=== PATIENT | female | born 1935 | race Caucasian/White ===

== ENCOUNTER → 2016-06-20 | Outpatient (CLI) | payer BC ==
[~2016-06-20] MED LIST: ALL180 PO; ASPI325T45 PO; HYDR25TA4 PO; PRED-301 PO; PRT/20 PO; SYN50 PO; VITA400C3 PO; XNX25 PO
[2016-06-20 12:41] LABS: HEMATOCRIT 42.6 % (37-47); MEAN CELL VOLUME 92.8 fL (80-100); MEAN CORPUSCULAR HGB CONC 34.5 g/dl (32-36); MEAN PLATELET VOLUME 10.3 fL (7.4-10.4); PLATELET COUNT 213 K/uL (130-400); RED BLOOD COUNT 4.59 M/uL (4.2-5.4); WHITE BLOOD COUNT 5.47 K/uL (4.8-10.8)
[2016-06-20 13:39] LABS: ALT/SGPT 29 U/L (12-78); AST/SGOT 21 U/L (15-37); BLOOD UREA NITROGEN 17 mg/dl (7-18); BUN/CREATININE RATIO 22.7 (10-20); CALCIUM 8.7 mg/dl (8.5-10.1); CARBON DIOXIDE 33 mmol/L (21-32); CHLORIDE 107 mmol/L (98-107); CREATININE 0.77 mg/dl (0.60-1.20); GLUCOSE 85 mg/dl (70-99); SODIUM 144 mmol/L (136-145)
[2016-06-20 13:50] LABS: ALKALINE PHOSPHATASE 88 U/L (45-117); CHOLESTEROL 216 mg/dl (0-200); CHOLESTEROL/HDL RATIO 2.4; HDL CHOLESTEROL 90 mg/dl; LDL CHOLESTEROL CALCULATED 102 mg/dl; TRIGLYCERIDES 122 mg/dl (0-150); VERY LOW DENSITY LIPOPROT CALC 24 mg/dl
== END | disposition home or self-care (01) ==
LOC: C.LABPVFM 07:50
PROVIDERS: ATTEND Internal Medicine
DX: E03.9 Hypothyroidism, unspecified (principal); E78.5 Hyperlipidemia, unspecified

== ENCOUNTER → 2016-12-22 | Outpatient (CLI) | payer BC ==
[2016-12-22 12:29] LABS: MEAN CELL VOLUME 93.9 fL (80-100); MEAN CORPUSCULAR HEMOGLOBIN 31.2 pg (25-34); MEAN CORPUSCULAR HGB CONC 33.3 g/dl (32-36); MEAN PLATELET VOLUME 10.5 fL (7.4-10.4); PLATELET COUNT 237 K/uL (130-400); RED BLOOD COUNT 4.58 M/uL (4.2-5.4)
[2016-12-22 13:23] LABS: ALT/SGPT 53 U/L (12-78); AST/SGOT 28 U/L (15-37); BLOOD UREA NITROGEN 14 mg/dl (7-18); CALCIUM 8.6 mg/dl (8.5-10.1); CARBON DIOXIDE 27 mmol/L (21-32); CHLORIDE 108 mmol/L (98-107); CHOLESTEROL 213 mg/dl (0-200); GLUCOSE 86 mg/dl (70-99); POTASSIUM 4.3 mmol/L (3.5-5.1); SODIUM 143 mmol/L (136-145)
[2016-12-22 13:33] LABS: ALB/GLOB RATIO 0.9 (0.9-2); ALKALINE PHOSPHATASE 128 U/L (45-117); CHOLESTEROL/HDL RATIO 2.6; HDL CHOLESTEROL 81 mg/dl; LDL CHOLESTEROL CALCULATED 103 mg/dl; TRIGLYCERIDES 145 mg/dl (0-150); VERY LOW DENSITY LIPOPROT CALC 29 mg/dl
== END | disposition home or self-care (01) ==
LOC: C.LABPVFM 07:59
PROVIDERS: ATTEND Internal Medicine
DX: M35.3 Polymyalgia rheumatica (principal); E03.9 Hypothyroidism, unspecified; E78.5 Hyperlipidemia, unspecified

== ENCOUNTER → 2017-06-26 | Outpatient (CLI) | payer BC ==
[~2017-06-26] MED LIST changes: +ASPECOTC PO; -ASPI325T45 PO
[2017-06-26 12:38] LABS: BASO % 0.9 %; BASO ABS # 0.04 K/uL (0-0.2); EOS % 5.9 %; EOS ABS # 0.26 K/uL (0-0.5); HEMATOCRIT 41.6 % (37-47); HEMOGLOBIN 13.9 g/dL (12.0-16.0); IG# 0.01 K/uL (0.00-0.02); LYMPH % 34.9 %; LYMPH ABS # 1.54 K/uL (1.2-3.4); MEAN CELL VOLUME 93.5 fL (80-100); MEAN CORPUSCULAR HEMOGLOBIN 31.2 pg (25-34); MEAN CORPUSCULAR HGB CONC 33.4 g/dl (32-36); MEAN PLATELET VOLUME 10.3 fL (7.4-10.4); MONO % 8.6 %; MONO ABS # 0.38 K/uL (0.11-0.59); NEUT % 49.5 %; NEUT ABS # 2.18 K/uL (1.4-6.5); PLATELET COUNT 188 K/uL (130-400); RED CELL DISTRIBUTION WIDTH CV 13.7 % (11.5-14.5); WHITE BLOOD COUNT 4.41 K/uL (4.8-10.8)
[2017-06-26 13:23] LABS: ALBUMIN 3.7 gm/dl (3.4-5.0); ALT/SGPT 36 U/L (12-78); BLOOD UREA NITROGEN 16 mg/dl (7-18); CALCIUM 8.6 mg/dl (8.5-10.1); CARBON DIOXIDE 27 mmol/L (21-32); CHOLESTEROL 213 mg/dl (0-200); CREATININE 0.74 mg/dl (0.60-1.20); GLUCOSE 82 mg/dl (70-99); POTASSIUM 4.2 mmol/L (3.5-5.1); SODIUM 142 mmol/L (136-145)
[2017-06-26 13:33] LABS: ALKALINE PHOSPHATASE 90 U/L (45-117); AST/SGOT 30 U/L (15-37); LDL CHOLESTEROL CALCULATED 112 mg/dl; TOTAL PROTEIN 6.9 gm/dl (6.4-8.2)
== END | disposition home or self-care (01) ==
LOC: C.LABPVFM 07:52
PROVIDERS: ATTEND Internal Medicine
DX: E78.5 Hyperlipidemia, unspecified (principal); K57.32 Diverticulitis of large intestine without perforation or abscess without bleeding; E03.9 Hypothyroidism, unspecified

== ENCOUNTER → 2017-07-01 | Outpatient (CLI) | payer BC | END | disposition home or self-care (01) | LOC: C.LABBFT 13:40 | PROVIDERS: ATTEND Internal Medicine | DX: R35.0 Frequency of micturition (principal) ==

== ENCOUNTER 2018-11-04 06:08 | Inpatient (IN) ==
--- NOTE | 2018-10-15 11:54 | PAT Medication Instructions ---
Medication Instructions Date of Service October 15, 2018 Home Medications Medication Instructions Recorded ranitidine 150 mg tablet 150 mg PO DAILY #90 tab 09/30/18 aspirin [Aspirin Childrens] 81 mg PO QAM fexofenadine [Jessika Allergy] 180 mg PO QAM levothyroxine 50 mcg PO QAM vitamin E 400 unit PO QAM ranitidine 150 mg tablet 150 mg PO DAILY STOP taking 2 weeks before surgery (or as soon as possible if surgery is within 2 weeks) vitamin E 400 unit PO QAM DO NOT take the morning of surgery fexofenadine [Jessika Allergy] 180 mg PO QAM ranitidine 150 mg tablet 150 mg PO DAILY Take morning of surgery With a small sip of water, OTHERWISE NOTHING TO EAT OR DRINK AFTER MIDNIGHT: aspirin [Aspirin Childrens] 81 mg PO QAM levothyroxine 50 mcg PO QAM Other Notes If you have any questions please call us at [phone] or [phone] or [phone] or [phone]
--- NOTE | 2018-10-18 14:12 | Anesthesiology Consultation ---
Date of Service October 18, 2018 Assessment & Plan (1) Encounter for pre-operative examination: Chart Review Chart Review: Acceptable Risk for Surgery and Patient seen in Pre Admission Testing Teaching & Discussion Pre-Anesthesia Teaching/Discussion Notes: Instructed NPO after midnight before surgery,except medications with 15 cc of water. Medication instructions provided according to the PAT guidelines. History Surgery Operation Date: 11/04/18 07:30 Proposed Procedures p Left Total Hip Replacement - David Johns MD Height/Weight Height: 5 ft 1 in Weight: 76.6 kg Allergies Allergy/AdvReac Type Severity Reaction Status Date / Time codeine Allergy Intermediate Rash Verified 10/18/18 14:12 shellfish derived Allergy Unknown pruritis Verified 10/18/18 14:12 corn AdvReac Unknown hx Verified 10/18/18 14:12 diverticulitis; advised to avoid nut - unspecified AdvReac Unknown hx Verified 10/18/18 14:12 diverticulitis; advised to avoid morphine AdvReac Vomiting Verified 10/18/18 14:12 tramadol AdvReac Vomiting Verified 10/18/18 14:12 Medications Home Medications Medication Instructions Recorded Confirmed Last Taken aspirin [Aspirin Childrens] 81 mg PO QAM 12/16/17 10/15/18 01/05/18 08:30 fexofenadine [Jessika Allergy] 180 mg PO QAM 12/16/17 10/15/18 01/05/18 08:30 levothyroxine 50 mcg PO QAM 12/16/17 10/15/18 01/05/18 08:30 vitamin E 400 unit PO QAM 12/16/17 10/15/18 01/05/18 08:30 ranitidine 150 mg tablet 150 mg PO DAILY #90 tab 09/30/18 10/15/18 Unknown Past Medical History Medical History Cancer skin cancer s/p excision Diverticular disease GERD (gastroesophageal reflux disease) controlled Hyperlipidemia Hypothyroidism Irritable bowel disease Obesity Osteoarthritis PMR (polymyalgia rheumatica) Prolapsed bladder Urinary leakage Exercise / Class Metabolic Activity III < 4 Walking/Shop/Light housework Past Family History Family History Mother Family history of diabetes mellitus Brother Family history of diabetes mellitus Grandmother Family history of diabetes mellitus Family/Other Family history of diabetes mellitus Past Surgical History Surgical History History of cataract surgery right/left; right cataract extraction: 01/06/18: MAC sedation at [facility] History of cholecystectomy History of colonoscopy History of dilatation and curettage MULTIPLE History of discectomy LUMBAR History of tonsillectomy History of tooth extraction History of total abdominal hysterectomy and bilateral salpingo-oophorectomy History of total hip arthroplasty RIGHT Past Anesthesia History No Hx of Anesthesia Complications (except PONV) and No Family Hx of Anesthesia Complications History of PONV History of PONV and Hx of Motion Sickness (while taking bus) Social History Smoking Status: Never smoker Do You Dip or Chew Tobacco: No Hx Alcohol Use: Yes Alcohol type: wine alcohol intake frequency: holidays/special occasions only Hx Substance Use: No substance use type: does not use Review of Systems Reflux controlled. Patient denies chest pain, shortness of breath, cough, wheezing, palpitations. Physical Exam Vital Signs VITALS BP 125/75 P 56 TEMP 98.0 SP02 93%RA RESP 20 PHYSICAL Mildly decreased cervical extension Full TMJ range of motion. TMD 3 finger breaths Mallampati Score 2 Dentition: upper full dentures, lower partial Lungs: clear throughout to auscultation Cardiac: regular rate and rhythm, no murmurs noted Spine: normal Carotid arteries: negative bruit Extremities: R>L LE non-pitting edema Testing Laboratory Results 10/18/18 14:31 10/18/18 14:31 PT 10.3 Seconds (9.0-12.0) 10/18/18 14:31 INR 1.0 (0.9-1.1) 10/18/18 14:31 APTT 27.6 Seconds (21.0-31.0) 10/18/18 14:31 Blood Type O Positive 10/18/18 14:31 Antibody Screen NEGATIVE 10/18/18 14:31 Electrocardiogram Date: 10/18/18 Findings: + NSR @ (60) Chest X-Ray Date: 10/18/18 The heart is borderline enlarged. A few bibasilar linear densities favor scar ring or atelectasis. Otherwise, no acute process within the chest. Stress Test Date: 02/27/13 Type: exercise Normal stress ECHO at 7.6 METs, 100% MPHR. No exercise-induced chest pain. No EKG changes. Baseline ECHO with EF 60%. Mild MR.
--- NOTE | 2018-10-18 14:50 | XRay Report ---
XR chest Pre-admission PA/Lat HISTORY: Preop. COMPARISON: Chest 02/27/2013. FINDINGS: A few small bibasilar linear densities consistent with subsegmental atelectasis. The lungs are otherwise clear. No pleural effusions. No pneumothorax. The heart is borderline enlarged. IMPRESSION: A few bibasilar linear densities favor scarring or atelectasis. Otherwise, no acute process within th e chest. Electronically signed by: Nikolai Alex M.D. 10/18/2018 2:49 PM
[2018-10-18 15:27] LABS: Basophils # (auto) 0.04 K/uL (0-0.2); Basophils % (auto) 0.9 %; Eosinophils # (auto) 0.17 K/uL (0-0.5); Eosinophils % (auto) 3.7 %; Hematocrit (blood only) 39.9 % (37-47); Hemoglobin 13.6 g/dL (12.0-16.0); Immature Granulocytes # (auto) 0.01 K/uL (0.00-0.02); Immature Granulocytes % (auto) 0.2 %; Lymphocytes # (auto) 1.39 K/uL (1.2-3.4); Mean Corpuscular Hemoglobin 30.9 pg (25-34); Mean Corpuscular Hgb Conc 34.1 g/dL (32-36); Mean Corpuscular Volume 90.7 fL (80-100); Mean Platelet Volume 10.4 fL (7.4-10.4); Monocytes # (auto) 0.34 K/uL (0.11-0.59); Monocytes % (auto) 7.3 %; Neutrophils # (auto) 2.69 K/uL (1.4-6.5); Neutrophils % (auto) 57.9 %; Platelet Count 189 K/uL (130-400); RDW Coefficient of Variation 13.2 % (11.5-14.5); RDW Standard Deviation 43.7 fL (36.4-46.3); White Blood Count 4.64 K/uL (4.8-10.8)
[2018-10-18 15:38] LABS: Partial Thromboplastin Time 27.6 Seconds (21.0-31.0); Prothrombin Time 10.3 Seconds (9.0-12.0)
[2018-10-18 15:39] LABS: BUN Creatinine Ratio 19.7 (10-20); C Reactive Protein 1.14 mg/dl (0-0.29); Calcium 8.5 mg/dl (8.5-10.1); Creatinine Clr Calc Pharmacy 44.4 ml/min; Est GFR (African American) 68.5; Est GFR (Non-African American) 59.1
--- NOTE | 2018-10-31 18:42 | History and Physical Report ---
DATE OF ADMISSION: 11/04/2018 CHIEF COMPLAINT: Left hip pain. HISTORY OF PRESENT ILLNESS: This 82-year-old female from [place] who is referred by my partner Dr. Valadez for surgical treatment of her left hip. She has a fairly long history of left hip pain and discomfort that has gotten significantly worse over the past year. She describes groin pain, thigh pain and some buttock pain. It radiates down to her knee. She does have a history of intermittent back problems as well but the groin and thigh pain seems to be worse. Her walking tolerance is limited. She is a and having difficulty living by herself. The more she walks, the more it hurts and she limps more as the day goes on. She has nighttime pain. She would like to have her left hip fixed. Of note, the patient had a right hip replacement by Dr. Montague in the past and has done pretty well from this. PAST MEDICAL HISTORY: 1. Gastroesophageal reflux disease. 2. Mild obesity, BMI 32. PAST SURGICAL HISTORY: Include: 1. Hysterectomy. 2. Back operations. 3. Cholecystectomy. 4. Right hip replacement done by Dr. Montague. ALLERGIES: CODEINE AND TRAMADOL, WHICH CAUSES NAUSEA. Does not do well with narcotics, these are not true allergies. CURRENT MEDICINES: Include: 1. Jessika 180 mg. 2. Unspecified med - 150 mg a day. 3. Levothyroxine 50 mcg a day. 4. Aspirin 81 mg a day. 5. Vitamin D 400 international units a day. SOCIAL HISTORY: An 82-year-old female. She is a . Does not smoke. FAMILY HISTORY: Significant for heart disease and diabetes. REVIEW OF HISTORY: Negative for diabetes, neurologic problem, vascular problem, bleeding disorders. Denies any chest pain or shortness of breath. No history of DVT or PE. PHYSICAL EXAMINATION: GENERAL: Reveals a pleasant elderly female. Looks to be in pretty good health. HEENT: Benign. NECK: Supple, no lymphadenopathy. LUNGS: Clear to auscultation. HEART: Regular rate and rhythm. ABDOMEN: Soft, nontender, nondistended. EXTREMITIES: Grossly neurovascularly intact except as follows: Examination of the left hip reveals the patient walks with slight bit of a limp. Leg lengths reveal the left side just to be a little bit shorter than the right and a 0.5 cm maybe at best. She does have pain and stiffness with any type of hip motion, particularly internal rotation. I can internally rotate to neutral, external rotation to 20 degrees. Negative straight leg raise. She is neurologically intact. X-RAYS: Left hip were reviewed. Shows moderately advanced left hip arthritis. She has got near complete loss of her superior joint space. She has some cystic changes in the femoral head and acetabulum. A lot of osteophyte formation. She does have a right hip replacement, looks to be in good position and well ingrown. ASSESSMENT: An 82-year-old female who had status post right hip replacement in the past with moderately advanced left hip arthritis. Fairly affecting her quality of life. She has failed conservative treatment and would like to have her left hip fixed. PLAN: We will take her to the operating room and do a left total hip replacement. The risks and benefits of this procedure were explained to the patient including but not limited to DVT, PE, , infection, neurological injury, vascular injury, bleeding problem, pain management, limb range of motion, stiffness, fracture, leg length inequality, nerve palsy, dislocation, need for blood transfusion, etc. The patient understands and desires to proceed. Informed consent was obtained. She does live by herself and she will likely need to go to rehab postoperatively. She is aware of this. I did talk to her about her back issues and this is not going to fix her back pain. She is fully aware of that as well. FORD
[~2018-11-04 06:08] MED LIST changes: +ACETAMINOPHEN 500 MG TAB PO SCH; -ALL180 PO; -ASPECOTC PO; +CEFAZOLIN 2000MG 2,000 MG/15 ML SYR IV SCH; +FAMOTIDINE 20 MG TAB PO SCH; +GABAPENTIN 300 MG CAP PO SCH; -HYDR25TA4 PO; +LR 500ML BOLUS, THEN 15ML/HR IV SCH; +LR 60ML/HR IV SCH; +METOCLOPRAMIDE HCL 10 MG TABLET PO SCH; -PRED-301 PO; -PRT/20 PO; -SYN50 PO; +TRANEXAMIC ACID 1,000 MG **IV Pre-op IV SCH; -VITA400C3 PO; -XNX25 PO
[2018-11-04] MEDS ORDERED: BUPIVACAINE 0.5 % 5 MG/1 ML PF 10ML VIAL ONE (06:27)
--- NOTE | 2018-11-04 06:50 | History & Physical Bridge Note ---
Date of Service November 04, 2018 History & Physical Bridge Note I have examined the patient, reviewed the History & Physical and in the interval since the performance of the History & Physical I have noted the following changes of clinical significance: no changes noted
[2018-11-04] MEDS ORDERED: MIDAZOLAM HCL 1 MG/ML 2ML VIAL ONE ×2 (08:01)
[2018-11-04] MEDS ORDERED: MoRPHine SULFATE PF 1 MG/ML 10 ML AMP/VIAL ONE (08:01)
[2018-11-04] MEDS ORDERED: SCOPOLAMINE 1.5 MG TDSY ONE (08:11)
[2018-11-04] MEDS ORDERED: SCOPOLAMINE 1.5 MG TDSY TD ONE (08:14)
[2018-11-04] MEDS ORDERED: BACITRACIN INJ 50,000 UNIT VIAL ONE (08:25)
[2018-11-04] MEDS ORDERED: BUPIVACAINE/EPINEPHRINE 0.5% MPF 1:200,000 30 ML VIAL ONE (08:25)
[2018-11-04] MEDS ORDERED: NALOXONE HCL 0.08 MG in SYRINGE 1.8 ML IV PRN (08:33)
[2018-11-04] MEDS ORDERED: MoRPHine SULFATE PF 1 MG/ML 10 ML AMP/VIAL INT SPINAL ONE (08:33)
[2018-11-04] MEDS ORDERED: DiphenhydrAMINE HCL 50 MG/ML VIAL IV PRN (08:33)
[2018-11-04] MEDS ORDERED: PROMETHAZINE HCL 6.25 MG in SODIUM CHLORIDE 0.9% 50 ML IV PRN (08:33)
[2018-11-04] MEDS ORDERED: NALOXONE HCL 1 MG in SODIUM CHLORIDE 0.9% 1000ML 1,000 ML IV PRN (08:33)
[2018-11-04] MEDS ORDERED: ONDANSETRON INJ 2 MG/ML 2 ML VIAL IV PRN ×2 (08:33→11:57)
[2018-11-04] MEDS ORDERED: LACTATED RINGER'S 500 ML IV PRN (08:33)
[2018-11-04] MEDS ORDERED: NALBUPHINE HCL INJ 10 MG/ML AMP IV PRN (08:33)
[2018-11-04] MEDS ORDERED: NALOXONE HCL 0.4 MG/1 ML VIAL/CARP IV PRN ×2 (08:33→11:57)
[2018-11-04] MEDS ORDERED: KETOROLAC 30 MG/ML VIAL IV PRN (08:33)
[2018-11-04] MEDS ORDERED: ePHEDrine sulfate 50 MG/ML AMP IV PRN (08:33)
[2018-11-04] MEDS ORDERED: SODIUM CHLORIDE 0.9% 1000ML 1,000 ML IV SCH (08:45)
[2018-11-04] MEDS ORDERED: NO NARCOTICS OR SEDATIVES SCH (08:45)
[2018-11-04] MEDS ORDERED: DC INTRASPINAL MORPHINE SCH (08:45)
[2018-11-04] MEDS ORDERED: LIDOCAINE HCL 2% 2 ML VIAL/AMP(20MG/ML) INFIL ONE (09:29)
[2018-11-04] MEDS ORDERED: PROPOFOL IV EMULSION 10 MG/ML 20 ML VIAL IV ONE (09:29)
[2018-11-04] MEDS ORDERED: ePHEDrine sulfate 50 MG/ML SYR ONE (09:29)
[2018-11-04] MEDS ORDERED: ONDANSETRON INJ 2 MG/ML 2 ML VIAL ONE (09:29)
--- NOTE | 2018-11-04 10:12 | Post Operative Brief Note ---
PG Immediate Post Op with CF Date of Surgery November 04, 2018 Pre & Post Diagnosis Operation Date: 11/04/18 08:50 Pre-Op Diagnosis: Left Hip Degenerative Joint Disease Post-Op Diagnosis: Left Hip Degenerative Joint Disease Procedure Operation Date: 11/04/18 08:50 Actual Procedures p Left Total Hip Replacement--Uncemented(Left) - David Johns MD Surgeon David Johns MD [employer] Technician [place], PAC Estimated Blood Loss 400 Findings Consistent with Post-Op Diagnosis Fluids 1500 cc Specimens Specimen Description: PERMANENT SPECIMEN: A. left femoral head Drains Rosado Catheter Anesthesia Type Spinal MAC Complications none Disposition Disposition: Recovery Room
--- NOTE | 2018-11-04 10:45 | XRay Report ---
XR hip 1V LT w pelvis CLINICAL HISTORY: Postoperative evaluation. COMPARISON: Pelvis and left hip radiographs October 13, 2018. FINDINGS: Alignment of the total left hip arthroplasty is anatomic. There is no periprosthetic fract ure or unexpected radiopaque foreign body. There are acetabular screws and skin lacy. Right hip ar throplasty is noted. IMPRESSION: Expected findings following total left hip arthroplasty. Electronically signed by: Sergei Sanz M.D. 11/04/2018 10:44 AM
--- NOTE | 2018-11-04 11:15 | Anesthesiology Progress Note ---
Date of Service November 04, 2018 Anesthesia Post Procedure Vital Signs Vital Signs: Temp Pulse Pulse Resp BP Pulse Ox 11/04/18 10:50 78 15 125/55 L 100 11/04/18 10:40 67 11 L 130/57 L 100 11/04/18 10:30 73 14 126/57 L 95 11/04/18 10:20 77 19 106/72 95 11/04/18 10:14 36.2 C L 70 16 120/52 L 97 11/04/18 06:48 36.6 C 62 20 170/88 H 93 Transfer of Care Handoff Completed per policy Notes Mental Status: alert / awake / arousable Patient Amnestic to Procedure: Yes Nausea / Vomiting: adequately controlled Pain: adequately controlled Airway Patency, RR, SpO2: stable & adequate BP & HR: stable & adequate Hydration State: stable & adequate Neuraxial Anesthesia: was administered and sensory block is resolving Anesthetic Complications: no major complications apparent
[2018-11-04] MEDS ORDERED: HYDROmorphone INJ 0.5 MG/0.5 ML SYR IV PRN (11:57)
[2018-11-04] MEDS ORDERED: ALUMINUM/MAGNESIUM SUSP 30 ML UDC PO PRN (11:57)
[2018-11-04] MEDS ORDERED: METOCLOPRAMIDE HCL INJ 5 MG/ML 2 ML VIAL IV PRN (11:57)
[2018-11-04] MEDS ORDERED: TRAMADOL HCL 50 MG TABLET PO PRN (11:57)
[2018-11-04] MEDS ORDERED: BISACODYL 10 MG SUPP PR PRN (11:57)
[2018-11-04] MEDS ORDERED: MAGNESIUM HYDROXIDE SUSP 30 ML UDC PO PRN (11:57)
[2018-11-04] MEDS ORDERED: KETOROLAC TROMETHAMINE 15 MG/ML VIAL IV SCH (12:30)
[2018-11-04] MEDS: SODIUM CHLORIDE 0.9% 1000ML 1,000 ML IV SCH ×2 (13:13→23:14)
[2018-11-04] MEDS: ACETAMINOPHEN 500 MG TAB PO SCH ×2 (14:03→21:01)
[2018-11-04] MEDS: CHECK SCOPOLAMINE PATCH PLACEMENT SCH ×2 (16:08→23:41)
[2018-11-04] MEDS: CEFAZOLIN 1000MG 1,000 MG/7.5 ML SYR IV SCH ×2 (16:08→23:41)
[2018-11-04] MEDS ORDERED: TRANEXAMIC ACID 1,000 MG in 0.9 % SODIUM CHLORIDE 100 ML IV SCH (16:30)
[2018-11-04] MEDS: ASCORBIC ACID 500 MG TAB PO SCH (18:01)
[2018-11-04] MEDS: FERROUS GLUCONATE 324 MG TAB PO SCH (18:01)
--- NOTE | 2018-11-04 18:19 | Progress Note ---
DATE: 11/04/2018 SUBJECTIVE: An 82-year-old female postop from a left hip replacement. She is doing well. She has had a couple episodes of emesis. Not really feeling sick, but just spontaneously throws up intermittently. No chest pain or shortness of breath. Not feeling dizzy or lightheaded. OBJECTIVE: VITAL SIGNS: Temperature 36.7. Vital signs stable. GENERAL: Reveals a pleasant elderly female. She is lying in bed and I had to wake up to visit with her this evening. LUNGS: Clear to auscultation. HEART: Regular rate and rhythm. ABDOMEN: Soft, nontender, nondistended. EXTREMITIES: Grossly neurovascularly intact except as follows: Examination of the left lower extremity reveals leg lengths to be equal. Her dressing is clean, dry and intact. Thigh is soft and supple. Hip is located. She can dorsiflex and plantarflex her foot appropriately. X-RAYS: X-rays of the left hip from recovery room reviewed and shows left uncemented total hip arthroplasty. Components looked to be in good position. No signs of problems. ASSESSMENT: An 82-year-old female postop from a left hip replacement, doing well. Her pain is controlled. Hip is located. She is neurologically intact. She has had some emesis, but not really nausea which should clear just with time. PLAN: 1. DVT prophylaxis including thigh-high TEDs, SCDs, and aspirin twice a day. 2. PT/OT. Weight bear as tolerated. Left total hip protocol. 3. Pain control, doing well with current pain regimen. She does not do well with narcotics and will try and limit narcotics as much as possible. 4. IV antibiotics x24 hours. 5. Disposition: Discharge plans are equivocal at this point. She would really like to go home. She lives by herself. She did the last time but I am not sure she is going to be capable of managing her situation at home. We will see how therapy goes tomorrow.
[2018-11-04] MEDS: SENNA 8.6 MG TAB PO SCH (20:49)
[2018-11-04] MEDS: ASPIRIN 81 MG ECTAB PO SCH (20:49)
[2018-11-04] MEDS: DOCUSATE SODIUM 100 MG CAP PO SCH (20:49)
--- NOTE | 2018-11-04 22:38 | Operative Report ---
DATE OF OPERATION: 11/04/2018 SURGEON: David Johns M.D. QUALITY CONTROL HEAD: JALEN Clark PREOPERATIVE DIAGNOSIS: Left hip degenerative joint disease. POSTOPERATIVE DIAGNOSES: 1. Left hip degenerative joint disease. 2. Left hip chronic abductor avulsion. PROCEDURE PERFORMED: 1. Left uncemented ceramic on highly cross-linked polyethylene total hip arthroplasty. 2. Left hip abductor repair. COMPLICATIONS: None. ESTIMATED BLOOD LOSS: 400 mL. FLUID REPLACEMENT: 1500 mL crystalloid fluid replacement. ANESTHESIA: Spinal. DRAINS: None. SPECIMENS: Left femoral head sent for pathology. OPERATIVE INDICATIONS: The patient is an 82-year-old female who has a history of right hip replacement done in the past. Over the past several years, she developed increased pain and discomfort in the left hip. She has been through extensive conservative treatment, which provides some temporary relief only. X-ray showed moderate hip arthritis. Symptoms really seem to be coming from her hip arthritis. She elected to proceed with total hip arthroplasty. OPERATIVE FINDINGS: Operative findings revealed fairly advanced left hip DJD. She had pretty extensive grade 4 [id number] disease in the superior articular surface of the femoral head. She had a moderate sized joint effusion. She had chronic hip abductor avulsion, particularly anteriorly. OPERATIVE IMPLANTS: Operative implants consisted of: 1. Biomet G7 size 50 mm acetabular shell. 2. A 6.5 cancellous acetabular screws, 1 at 35 mm length and 1 at 20 mm length. 3. An apex hole eliminator. 4. A highly cross-linked polyethylene liner with 50 mm outer diameter and 36 mm inner diameter. 5. DePuy Corail size 10 standard offset femoral stem. 6. A +1.5/36 mm ceramic articular ball. 7. A Biomet JuggerKnot suture anchor. OPERATIVE PROCEDURE: The patient was taken to the operating room, identified and placed on the operating table in supine position. All contact areas were appropriately padded. IV antibiotics provided by anesthesia team. Spinal anesthetic was implemented in the holding area. A Rosado catheter was placed in sterile fashion. The patient was then placed in the right lateral decubitus position. An axillary roll was placed. Stlberg hip positioner was used for positioning. Left hip and leg were then prepped and draped in usual sterile fashion. A posterolateral approach to the left hip was then performed through a curvilinear incision and centered over the greater trochanter. Sharp dissection was carried through subcutaneous tissue down to the level of the IT band and gluteal fascia. The IT band and gluteal fascia were incised longitudinally in line with skin incision. The underlying greater trochanteric bursa was excised. I then visualized the hip abductors and posteriorly seemed to be pretty well attached, but anteriorly there was a significant detachment. The piriformis and external rotators were then tagged and taken off the posterior aspect of the hip joint capsule. Great care was taken throughout the procedure to protect the sciatic nerve at all times. Posterior capsulotomy was then performed leaving a large flap for later repair. The hip was internally rotated and dislocated. Femoral neck osteotomy cut was made with final cut about 10 mm above the lesser trochanter. Femoral head was removed and sent for pathology. The femur was retracted anteriorly. Attention was then drawn to the acetabulum. The acetabular labrum was excised. The pulvinar fat was excised. Sequential reaming of the acetabulum was then performed beginning with size 43 and progressing up to 49. A 50-mm Biomet G7 acetabular shell was then placed in about 40 degrees of lateral opening and 20 degrees of anteversion. It was fixed with two 6.5 cancellous acetabular screws. A small anterior osteophyte was removed. A trial liner was placed. Attention was then drawn to the femur. The proximal femur was entered with cookie cutter followed by canal finder. I then broached beginning with a size 8 and progressing up to 10. We got good fit at 10. Calcar reamer was used to smoothen off the calcar. We initially tried the +5 articular ball, but the soft tissue tension seemed too tight. We then trialed the +1.5 articular ball. Hip was fully stable in full extension and external rotation and flexion to 90 degrees, internal rotation over [address] I elected to place these implants. All trial implants were removed. An apex hole eliminator was placed. Highly cross-linked polyethylene liner was placed. A DePuy Corail size 10 KLA femoral stem was impacted in position. A +1.5/36 mm ceramic articular ball was placed. Hip was located and once again found to be stable. Attention was then drawn toward closing. The wound was irrigated with copious amounts of pulsatile lavage solution. I did inject locally with 60 mL of 0.5% Marcaine with epinephrine. The posterior capsule and external rotators were then repaired through drill holes and the posterior trochanter with #2 Ti-Cron suture. I then used the cautery to scuff up some of the greater trochanter area, particularly anteriorly. I placed a single Biomet JuggerKnot anchor anteriorly with 2 suture limbs on it. I fed one set of the sutures through the superior hip abductors and then one set to the anterior hip abductors to reapproximate this back to the bone. The IT band and gluteal fascia were then closed with #1 PDS suture in a running fashion. Subcutaneous tissue was then closed with 2 layers, with the deep layer with #1 Vicryl suture and subcutaneous tissue with 2-0 Dexon suture in a buried interrupted fashion. The skin was closed with skin lacy. Leg was then cleaned, dried and a sterile dressing of Xeroform, 4 x 4, sterile ABD pad and foam tape was applied. The patient then transferred to the recovery room in stable condition. The patient tolerated the procedure well with no complications. All needle and sponge counts were correct at the end of the operation. I attest to the content of the Intraoperative Record and any orders documented therein. Any exception s are noted below.
[2018-11-05] MEDS: KETOROLAC TROMETHAMINE 15 MG/ML VIAL IV SCH ×4 (02:39→18:10)
[2018-11-05] MEDS ORDERED: TRAMADOL HCL 50 MG TABLET PO PRN (03:00)
[2018-11-05] MEDS ORDERED: HYDROmorphone INJ 0.5 MG/0.5 ML SYR IV PRN (03:00)
[2018-11-05] MEDS: ACETAMINOPHEN 500 MG TAB PO SCH ×3 (06:12→20:25)
[2018-11-05] MEDS: LEVOTHYROXINE SODIUM 50 MCG TABLET PO SCH (06:26)
[2018-11-05 06:27] LABS: Basophils # (auto) 0.02 K/uL (0-0.2); Basophils % (auto) 0.3 %; Eosinophils # (auto) 0.12 K/uL (0-0.5); Eosinophils % (auto) 1.7 %; Hematocrit (blood only) 34.2 % (37-47); Hemoglobin 11.6 g/dL (12.0-16.0); Immature Granulocytes # (auto) 0.01 K/uL (0.00-0.02); Immature Granulocytes % (auto) 0.1 %; Lymphocytes # (auto) 1.41 K/uL (1.2-3.4); Lymphocytes % (auto) 20.3 %; Mean Corpuscular Hemoglobin 30.8 pg (25-34); Mean Corpuscular Hgb Conc 33.9 g/dL (32-36); Mean Corpuscular Volume 90.7 fL (80-100); Monocytes # (auto) 0.53 K/uL (0.11-0.59); Monocytes % (auto) 7.6 %; Neutrophils # (auto) 4.87 K/uL (1.4-6.5); Platelet Count 160 K/uL (130-400); RDW Coefficient of Variation 13.1 % (11.5-14.5); RDW Standard Deviation 43.7 fL (36.4-46.3); Red Blood Count 3.77 M/uL (4.2-5.4); White Blood Count 6.96 K/uL (4.8-10.8)
[2018-11-05 06:57] LABS: BUN Creatinine Ratio 22.9 (10-20); Calcium 7.7 mg/dl (8.5-10.1); Creatinine Clr Calc Pharmacy 56.2 ml/min; Est GFR (African American) 92.9; Est GFR (Non-African American) 80.1; Potassium 3.6 mmol/L (3.5-5.1)
--- NOTE | 2018-11-05 07:26 | Anesthesiology Progress Note ---
Date of Service November 05, 2018 Anesthesia Post Procedure Vital Signs Vital Signs: Temp Pulse Pulse Resp BP Pulse Ox 11/05/18 06:48 37.3 C 58 L 18 125/81 96 11/05/18 03:13 36.9 C 57 L 16 121/77 93 11/05/18 01:48 16 94 11/05/18 00:50 14 90 11/04/18 23:50 14 90 11/04/18 23:10 36.9 C 67 16 111/68 92 11/04/18 22:58 12 92 11/04/18 21:47 15 97 11/04/18 20:47 16 94 11/04/18 20:00 36.4 C L 60 15 104/62 94 11/04/18 19:52 20 98 11/04/18 18:43 13 98 11/04/18 18:14 36.8 C 11/04/18 17:47 20 95 11/04/18 16:44 12 95 11/04/18 15:46 12 99 11/04/18 14:52 69 18 155/74 H 99 11/04/18 14:24 18 150/83 H 99 11/04/18 13:45 93 H 20 177/80 H 97 11/04/18 13:00 36.7 C 69 16 93 11/04/18 12:18 36.2 C L 80 18 154/81 H 100 11/04/18 11:30 36.3 C L 64 14 117/61 100 11/04/18 11:20 67 10 L 122/63 100 11/04/18 11:10 36.0 C L 71 12 120/64 100 11/04/18 11:00 64 13 123/53 L 100 11/04/18 10:50 78 15 125/55 L 100 11/04/18 10:40 67 11 L 130/57 L 100 11/04/18 10:30 73 14 126/57 L 95 11/04/18 10:20 77 19 106/72 95 11/04/18 10:14 36.2 C L 70 16 120/52 L 97 Notes Mental Status: alert / awake / arousable and participated in evaluation Patient Amnestic to Procedure: Yes Nausea / Vomiting: adequately controlled Pain: adequately controlled Airway Patency, RR, SpO2: stable & adequate BP & HR: stable & adequate Hydration State: stable & adequate Anesthetic Complications: Pt Satisfied with anesthetic care
[2018-11-05] MEDS: FEXOFENADINE HCL 180 MG TAB PO SCH (07:32)
[2018-11-05] MEDS: CHECK SCOPOLAMINE PATCH PLACEMENT SCH ×2 (07:32→18:09)
--- NOTE | 2018-11-05 07:42 | Progress Note ---
DATE: 11/05/2018 SUBJECTIVE: An 82-year-old female postop day 1 from a left hip replacement. She is doing well. The nausea seems to have passed. Really not having much pain. Had a good night. No chest pain or shortness of breath. Not feeling dizzy or lightheaded. OBJECTIVE: VITAL SIGNS: Temperature 37.3. Vital signs stable. GENERAL: Physical examination shows a pleasant elderly female. She is lying in bed, looks comfortable. EXTREMITIES: Examination of the left hip and leg reveals leg lengths to be equal. Hip is located. Her dressing is clean, dry and intact. She can dorsiflex and plantarflex her foot appropriately. She is neurologically intact. LABORATORY DATA: Hemoglobin is 11.6. Hematocrit 34.2. Electrolytes are stable. ASSESSMENT: An 82-year-old female postop day 1 from a left hip replacement, doing well. Pain is controlled. Does not do well with narcotics. She is having some itching. Likely related to the morphine and spinal. PLAN: 1. DVT prophylaxis including thigh-high TEDs, SCDs, and aspirin twice a day. 2. PT/OT. Weight bear as tolerated. Left total hip protocol. 3. Pain control, doing pretty well with current medical management. 4. Itching. Most likely related to the morphine and spinal. She takes Jessika normally medially on the outside. We will make sure if she is ordered for that. 5. Disposition: She is going to see how she does in therapy today. I really think she would best to go to rehab or assisted facility. We will see how she does in therapy, she wants to go home with some home health if possible.
[2018-11-05] MEDS: DOCUSATE SODIUM 100 MG CAP PO SCH ×2 (08:53→20:24)
[2018-11-05] MEDS: FERROUS GLUCONATE 324 MG TAB PO SCH ×2 (08:53→18:09)
[2018-11-05] MEDS: MULTIVITAMIN TAB PO SCH (08:53)
[2018-11-05] MEDS: TOCOPHERYL, DL-ALPHA 400 UNITS CAP PO SCH (08:53)
[2018-11-05] MEDS: ASCORBIC ACID 500 MG TAB PO SCH ×2 (08:54→18:09)
[2018-11-05] MEDS: ASPIRIN 81 MG ECTAB PO SCH ×2 (08:54→20:24)
[2018-11-05] MEDS: SENNA 8.6 MG TAB PO SCH (20:24)
[2018-11-06] MEDS: CHECK SCOPOLAMINE PATCH PLACEMENT SCH (00:46)
[2018-11-06] MEDS: KETOROLAC TROMETHAMINE 15 MG/ML VIAL IV SCH ×4 (00:46→19:01)
[2018-11-06] MEDS: LEVOTHYROXINE SODIUM 50 MCG TABLET PO SCH (05:49)
[2018-11-06] MEDS ORDERED: ONDANSETRON 4 MG TAB PO PRN (07:59)
[2018-11-06] MEDS ORDERED: ONDANSETRON 4 MG OD TAB ONE (08:04)
--- NOTE | 2018-11-06 08:42 | Progress Note ---
DATE: 11/06/2018 SUBJECTIVE: An 82-year-old white female postop day 2 from a left hip replacement. Her pain has been well controlled. Really not having much pain. Her biggest complaint is nausea. Very nauseated this morning. No chest pain or shortness of breath. Not feeling dizzy. OBJECTIVE: VITAL SIGNS: Temperature 37.1. Vital signs stable. GENERAL: Physical examination shows a pleasant elderly female. She is sitting up in her bedside chair with an emesis bag in her hand. Just looks uncomfortable from the nausea standpoint. EXTREMITIES: Examination of left hip reveals the dressing to be clean, dry and intact. Leg lengths were equal. Thigh is soft and supple. She is neurologically intact. ASSESSMENT: An 82-year-old white female with a known history of nausea postop day 2 from left hip replacement, doing pretty well. Major issue is nausea. Pain is controlled. Really not get much pain medicine. PLAN: 1. DVT prophylaxis including thigh-high TEDs, SCDs, and aspirin twice a day. 2. PT/OT. She will weightbear as tolerated. Left total hip protocol. 3. Pain control, doing well with current pain regimen. We are going to stick with Tylenol for pain. 4. Nausea. We will write her for some oral Zofran. 5. Disposition: She is decided that she go to rehab or fpc facility. She lives by herself and is not going to be okay to go home. She will need some assistance. We are awaiting insurance approval and acceptance.
[2018-11-06] MEDS: ASPIRIN 81 MG ECTAB PO SCH ×2 (11:16→19:04)
[2018-11-06] MEDS: FEXOFENADINE HCL 180 MG TAB PO SCH (11:17)
[2018-11-06] MEDS: DOCUSATE SODIUM 100 MG CAP PO SCH ×2 (11:17→19:04)
[2018-11-06] MEDS: FERROUS GLUCONATE 324 MG TAB PO SCH ×2 (11:17→17:31)
[2018-11-06] MEDS: ACETAMINOPHEN 500 MG TAB PO SCH ×4 (11:17→20:42)
[2018-11-06] MEDS: ASCORBIC ACID 500 MG TAB PO SCH ×2 (11:17→17:31)
[2018-11-06] MEDS: TOCOPHERYL, DL-ALPHA 400 UNITS CAP PO SCH (11:17)
[2018-11-06] MEDS: MULTIVITAMIN TAB PO SCH (11:17)
[2018-11-06] MEDS: SENNA 8.6 MG TAB PO SCH (20:42)
[2018-11-07] MEDS: LEVOTHYROXINE SODIUM 50 MCG TABLET PO SCH (05:37)
[2018-11-07] MEDS: ACETAMINOPHEN 500 MG TAB PO SCH ×3 (06:01→21:38)
[2018-11-07] MEDS: DOCUSATE SODIUM 100 MG CAP PO SCH ×2 (08:29→21:38)
[2018-11-07] MEDS: TOCOPHERYL, DL-ALPHA 400 UNITS CAP PO SCH (08:30)
[2018-11-07] MEDS: MULTIVITAMIN TAB PO SCH (08:30)
[2018-11-07] MEDS: ASPIRIN 81 MG ECTAB PO SCH ×2 (08:30→21:38)
[2018-11-07] MEDS: FEXOFENADINE HCL 180 MG TAB PO SCH (08:30)
[2018-11-07] MEDS: FERROUS GLUCONATE 324 MG TAB PO SCH ×2 (08:30→17:42)
[2018-11-07] MEDS: ASCORBIC ACID 500 MG TAB PO SCH ×2 (08:30→17:42)
--- NOTE | 2018-11-07 08:35 | Progress Note ---
DATE: 11/07/2018 SUBJECTIVE: An 82-year-old white female postop day 3 from a left total hip placement. Hip is doing fine. Not having any pain. Feeling much better from the nausea standpoint. She did not take any pain medicines at all, even the Tylenol seems to make her sick. She is reluctantly acceptable, maybe go to a halfway facility. OBJECTIVE: VITAL SIGNS: Temperature 37.4. Vital signs stable. GENERAL: Physical examination shows a pleasant elderly female. She is sitting up at her bedside chair, looks comfortable. EXTREMITIES: Examination of the left hip reveals the dressing to be clean, dry and intact. Hip is located. Leg lengths were equal. Thigh is soft and supple. She is neurologically intact. ASSESSMENT: An 82-year-old white female postop day 3 from left total hip replacement, doing pretty well. Doing much better now. She is just stopping essentially all medicines. Does not really tolerate Tylenol even. PLAN: 1. DVT prophylaxis including thigh-high TEDs, SCDs, and aspirin twice a day. 2. PT/OT. Weight bear as tolerated. Left total hip protocol. 3. Pain control. We are just going to stick with Tylenol only as needed. 4. Disposition: She has been denied rehab. She is willing to go to [facility] for a short period of time if we can get her approved. Otherwise, she will likely go home with home health. I think it is best to get her to a halfway facility for a short visit.
[2018-11-07] MEDS: SENNA 8.6 MG TAB PO SCH (21:38)
[2018-11-08] MEDS: LEVOTHYROXINE SODIUM 50 MCG TABLET PO SCH (05:29)
[2018-11-08] MEDS: ACETAMINOPHEN 500 MG TAB PO SCH (05:29)
[2018-11-08] MEDS: DOCUSATE SODIUM 100 MG CAP PO SCH (07:53)
[2018-11-08] MEDS: FERROUS GLUCONATE 324 MG TAB PO SCH (07:53)
[2018-11-08] MEDS: ASCORBIC ACID 500 MG TAB PO SCH (07:53)
[2018-11-08] MEDS: FEXOFENADINE HCL 180 MG TAB PO SCH (07:54)
[2018-11-08] MEDS: TOCOPHERYL, DL-ALPHA 400 UNITS CAP PO SCH (07:54)
[2018-11-08] MEDS: MULTIVITAMIN TAB PO SCH (07:54)
[2018-11-08] MEDS: ASPIRIN 81 MG ECTAB PO SCH (07:55)
--- NOTE | 2018-11-08 08:51 | Progress Note ---
DATE: 11/08/2018 SUBJECTIVE: An 82-year-old white female postop day 4 from a left total hip replacement. She is doing pretty well. Nausea seems to be better. Still just waiting for placement. OBJECTIVE: VITAL SIGNS: Temperature 36.9. Vital signs stable. GENERAL: Shows a pleasant elderly female, sitting up in her bedside chair, looks pretty comfortable. MUSCULOSKELETAL: Examination of the left leg reveals the dressing to be clean, dry and intact. Hip is located. Thigh is soft and supple. She is neurologically intact. ASSESSMENT: An 82-year-old white female postoperative day 4 from a left total hip replacement, doing pretty well. Pain is controlled. Nausea seems to be stable. PLAN: 1. DVT prophylaxis including thigh-high TEDs, SCDs, and aspirin twice a day. 2. PT/OT. Weight bear as tolerated. Left total hip protocol. 3. Pain control, doing well with current pain regimen. We are going to just stick to Tylenol for pain as much as possible. 4. Disposition: [facility] if approved later today.
--- NOTE | 2018-11-12 22:49 | Discharge Summary ---
ADMITTING PHYSICIAN AND SURGEON: Dr. David Johns. ADMITTING DIAGNOSIS: Left hip degenerative joint disease. SURGERY PERFORMED: Left total hip arthroplasty with left hip abductor repair as well. SECONDARY DIAGNOSES: Gastroesophageal reflux disease, mild obesity. CONSULTS: None obtained. HISTORY AND PHYSICAL EXAMINATION: Well documented in the patient's chart. HOSPITAL COURSE: The patient was admitted on 11/04/2018, underwent a total hip arthroplasty, tolerated the procedure well. There were no complications. She was transferred to the PACU postoperatively and later to the orthopedic floor for further care. She was given Ancef for antibiotic prophylaxis, KYREE stockings, SCDs and aspirin for DVT prophylaxis. Hemoglobin, hematocrit and vital signs were monitored during her hospital stay and remained stable. She did not require any blood transfusions. There were no complications. By postoperative day 4, she was tolerating a regular diet, pain was controlled with oral pain medicine. She was participating in physical therapy. On postop day 4, [facility] She was given printed discharge instructions as well as new prescriptions for extra-strength Tylenol, aspirin, Zofran, and tramadol. Continue her home medications. Continue physical therapy, weightbearing as tolerated, KYREE stockings, total hip precautions. Follow up approximately 2 weeks postop or sooner if there are any problems or concerns.
== END 2018-11-08 10:15 | DRG 470 ==
LOC: ASU 06:08 → 3E 10:22

== ENCOUNTER 2024-03-04 11:35 | Observation (INO) ==
--- NOTE | 2024-03-04 11:55 | Emergency Department Note ---
Impression & Plan Dizziness, Lightheadedness, Stroke-like symptoms ED Provider Note NAME: MESERET WISDOM AGE: 88 SEX: F : 1935 ARRIVES VIA: Ambulance INFORMANT: [Patient] ED PROVIDER(S): [Moises Nava MD] CHIEF COMPLAINT: Dizziness HISTORY OF PRESENT ILLNESS: The patient is an 88-year-old female whose had 5 weeks of dizziness. Things worsened in the last 2 days. She presents for evaluation. Patient complains of dizziness and lightheadedness with standing. Today, she had to hold onto things in order to keep herself steady. There is no spinning sensation. She has had no headache or neck pain or chest pain, no urinary complaints. No one-sided weakness. Patient states that 2 nights ago, she started Celexa. She had stopped buspirone. Her doctors made these adjustments to see if the change would help with her dizziness. PMHx/PSHx/Social Hx: See Below PHYSICAL EXAM: GENERAL: Patient is in no acute distress. HEENT: No acute trauma, normocephalic atraumatic, mucous membranes moist, no nasal congestion. NECK: No stridor, no adenopathy, no meningismus, trachea is midline. LUNGS: Clear to auscultation bilaterally, no wheeze, no rhonchi, breath sounds equal. HEART: Without murmurs gallops or rubs, regular rate and rhythm. ABDOMEN: Soft, nontender, no peritonitis. EXTREMITIES: No cyanosis, full range of motion of all the joints without pain or difficulty. NEUROLOGIC: Oriented x 3, no acute motor or sensory deficits, no focal weakness. No cerebellar deficits, no speech slur. No extremity drift. SKIN: No jaundice, no diaphoresis. DIFFERENTIAL DIAGNOSIS: Vertigo, dehydration, electrolyte imbalance, anemia, medication reaction, stroke, among others. EMERGENCY DEPARTMENT PROCEDURES: MEDICAL DECISION MAKING: There is no leukocytosis or concerning anemia. There is a normal platelet count. No renal failure or significant electrolyte abnormality. No concerning liver enzyme elevation. Patient appeared to be in a euthyroid state. ECG shows a sinus rhythm, there were some PACs. There was no acute ischemic change, no dysrhythmia. Cardiac enzyme testing x 1 was not consistent with acute cardiac injury. The patient appeared to be in a euthyroid state. Urinalysis did not show blood or infection. Brain CT showed no acute bleed or mass effect. Chest x-ray did not show pneumonia or CHF. On exam, there were no focal neurologic findings. Stroke scale was 0. The patient was ordered for a brain MRI, this result is pending. The patient received IV Ativan in preparation for her MRI. She was given IV saline for hydration. She was given oral meclizine. The patient is still dizzy. She does live alone, she almost fell because of her complaints. I do not believe she is currently safe for discharge. At this point, the cause for her complaints is unclear. She may have a posterior circulation stroke, the MRI is pending. She may be suffering from vertigo. In any regard, she requires further care and symptom control in the hospital. I spoke with the patient and family service caseworker. The on-call hospitalist was consulted. Of note, patient clearly was not a TNK candidate, her symptoms have been ongoing for weeks. Prior/Outside records/notes reviewed: Today's EMS notes describing her presentation and transport to this hospital. ECG per my interpretation: Indication was dizziness. The ECG shows a sinus rhythm with PACs. The rate is 64. There is no acute ST elevation, no PVCs. There is an incomplete right bundle branch block. QTc was 435. Continuous Cardiac Monitoring per my interpretation: An order was placed for continuous cardiac monitoring. The monitor shows a rate of 63 with normal sinus rhythm. Imaging/x-ray results per my interpretation: Chest x-ray does not show mediastinal widening, pneumonia or pneumothorax. Chronic Medical/Social conditions affecting care: Advanced age, lives alone. Care/Management discussed with: Case management, the on-call hospitalist. Level of care consideration(s): After review of the information above and other included data: --I believe the patient requires escalation of care to admission DISPOSITION: Admission Past Med/Surg History Problem List (Updated 03/04/24 @ 19:52 by Moises Nava MD) Stroke-like symptoms (Acute) Lightheadedness (Acute) Dizziness (Acute) Cystocele with prolapse Abnormal PFT Hypertension (Acute) Anxiety Carpal tunnel syndrome on both sides Right rotator cuff tear GERD (gastroesophageal reflux disease) controlled Hypothyroidism Hyperlipidemia PMR (polymyalgia rheumatica) Medical History Obesity Diverticular disease PMR (polymyalgia rheumatica) Osteoarthritis Prolapsed bladder Urinary leakage Irritable bowel disease Cancer skin cancer s/p excision Surgical History H/O bilateral hip replacements History of cataract surgery History of dilatation and curettage History of total abdominal hysterectomy and bilateral salpingo-oophorectomy History of discectomy History of total hip arthroplasty History of colonoscopy History of cholecystectomy History of tooth extraction History of tonsillectomy Family History Mother Family history of diabetes mellitus Stroke Brother Family history of diabetes mellitus Grandmother Family history of diabetes mellitus Family/Other Family history of diabetes mellitus Sister Arthritis Father Stroke Social History Smoking Status: Never smoker Second Hand Exposure: No; Do You Dip or Chew Tobacco: No; Hx Alcohol Use: Yes Alcohol type: wine Hx Substance Use: No Preferred Language: Kyrgyz Communication Ability: Effective Clinical Material Handler Required: No Beliefs That Will Affect Care: None Current Living Situation: Alone current occupational status: retired Feels Safe at Home: Yes Diet: regular caffeine: Yes Dental Care, Regularly: No Seatbelt Use: sometimes Sunscreen Use: Yes Assistive Devices: Denture - Upper, Denture - Lower, Glasses, Hearing Aid - Left, Hearing Aid - Right and Walker Allergies Allergies Allergy/AdvReac Type Severity Reaction Status Date / Time codeine Allergy Intermediate Rash Verified 02/15/24 09:49 shellfish derived Allergy Unknown pruritis Verified 02/15/24 09:49 corn AdvReac Unknown hx Verified 02/15/24 09:49 diverticulitis; advised to avoid nut - unspecified AdvReac Unknown hx Verified 02/15/24 09:49 diverticulitis; advised to avoid morphine AdvReac Vomiting Verified 02/15/24 09:49 tramadol AdvReac Vomiting Verified 02/15/24 09:49 Home Meds Home Medications Medication Instructions Recorded Confirmed fexofenadine 180 mg tablet 180 mg PO QAM 12/16/17 03/04/24 (Jessika Allergy) vitamin E 268 mg (400 unit) capsule 400 unit PO QAM 12/16/17 03/04/24 citalopram 10 mg tablet 10 mg PO UD 03/04/24 03/04/24 triamcinolone acetonide 0.025 % 1 applic topical BID PRN dermatitis 03/04/24 03/04/24 topical cream Previous Rx's Medication Instructions Recorded aspirin 81 mg tablet,delayed 81 mg PO DAILY #90 tabs 10/11/20 release cimetidine 400 mg tablet 400 mg PO DAILY PRN heartburn #90 02/18/22 tabs amoxicillin 500 mg capsule 2,000 mg (4 x 500 mg) PO ONCE #4 11/12/22 caps hydrochlorothiazide 12.5 mg tablet 12.5 mg PO DAILY #90 tabs 09/04/23 levothyroxine 75 mcg tablet 75 mcg PO DAILY #90 tabs 11/14/23 valsartan 160 mg tablet 160 mg PO DAILY #90 tabs 11/20/23 Results & Data (ED) Vital Signs Vital Signs - 24 hr 03/04/24 11:17 03/04/24 11:22 03/04/24 11:22 Temperature 36.9 C Temperature Source Oral Pulse Rate 66 Pulse Rate [Apical] Respiratory Rate 18 18 Blood Pressure 174/98 H Blood Pressure [Left Arm] Blood Pressure Mean 123 Blood Pressure Mean [Left Arm] Pulse Oximetry 96 Oxygen Delivery Method Room Air Room Air Sepsis Recent Fever Within 48 Hours No Sepsis New/Unexplained Change in Mental Status N/A Sepsis Action Taken by Nursing No Action Required 03/04/24 11:41 03/04/24 11:51 03/04/24 14:29 Temperature Temperature Source Pulse Rate 63 Pulse Rate [Apical] 73 Respiratory Rate 16 Blood Pressure Blood Pressure [Left Arm] 118/86 Blood Pressure Mean Blood Pressure Mean [Left Arm] 96 Pulse Oximetry 96 97 Oxygen Delivery Method Room Air Sepsis Recent Fever Within 48 Hours Sepsis New/Unexplained Change in Mental Status Sepsis Action Taken by Nursing 03/04/24 16:30 03/04/24 18:38 Temperature Temperature Source Pulse Rate Pulse Rate [Apical] 75 72 Respiratory Rate 18 16 Blood Pressure Blood Pressure [Left Arm] 151/94 H 119/67 Blood Pressure Mean Blood Pressure Mean [Left Arm] 113 84 Pulse Oximetry 96 95 Oxygen Delivery Method Room Air Room Air Sepsis Recent Fever Within 48 Hours Sepsis New/Unexplained Change in Mental Status Sepsis Action Taken by Fpc Medications Current Medication List: was personally reviewed by me Laboratory Data Attestation: I reviewed the patient's lab results. 03/04/24 11:41 03/04/24 11:41 Lab Results 03/04/24 03/04/24 Range/Units 11:41 13:49 WBC 4.90 (4.8-10.8) K/ul RBC 4.44 (4.20-5.40) M/uL Hgb 13.7 (12.0-16.0) g/dl Hct 40.9 (37.0-47.0) % MCV 92.1 (80.0-100.0) fL MCH 30.9 (25.0-34.0) pg MCHC 33.5 (32.0-36.0) g/dL RDW Std Deviation 41.7 (36.4-46.3) fL RDW Coeff of Mateo 12.4 (11.5-14.5) % Plt Count 190 (130-400) K/uL MPV 10.9 (9.4-12.4) fL Immature Gran % (Auto) 0.4 % Neut % (Auto) 70.5 % Lymph % (Auto) 19.4 % Mora % (Auto) 6.7 % Eos % (Auto) 2.0 % Baso % (Auto) 1.0 % Neut # (Auto) 3.45 (1.40-6.50) K/uL Lymph # (Auto) 0.95 L (1.20-3.40) K/uL Mora # (Auto) 0.33 (0.11-0.59) K/uL Eos # (Auto) 0.10 (0.00-0.50) K/uL Baso # (Auto) 0.05 (0.00-0.20) K/uL Immature Gran # (Auto) 0.02 (0.01-0.20) K/uL Sodium 138 (136-145) mmol/L Potassium 4.5 (3.5-5.1) mmol/L Chloride 103 (98-107) mmol/L Carbon Dioxide 29 (21-32) mmol/L Anion Gap 6 (3-11) BUN 21 (6-23) mg/dl Creatinine 0.96 (0.6-1.2) mg/dl Est Cr Clr Drug Dosing 35.7 ml/min eGFR 56.55 BUN/Creatinine Ratio 21.9 H (10-20) Glucose 96 (70-99(Fasting)) mg/dl Calcium 9.1 (8.6-10.3) mg/dl Magnesium 1.9 (1.7-2.4) mg/dl Total Bilirubin 1.0 (0.2-1.0) mg/dl AST 26 (13-39) U/L ALT 16 (7-52) U/L Alkaline Phosphatase 70 (34-104) U/L Troponin I High Sens 4.7 (0-14) pg/ml Total Protein 7.0 (6.0-8.3) gm/dl Albumin 4.2 (3.4-5.0) gm/dl Globulin 2.8 (2.5-4.0) gm/dl Albumin/Globulin Ratio 1.5 (0.9-2) TSH 0.887 (0.300-4.500) uIu/ml Urine Color Yellow Urine Appearance Clear (Clear) Urine pH 6.0 (4.5-7.5) Ur Specific [place] 1.011 (1.000-1.030) Urine Protein Negative (Negative) Urine Glucose (UA) Negative (Negative) Urine Ketones Negative (Negative) Urine Blood Negative (Negative) Urine Nitrite Negative (Negative) Urine Bilirubin Negative (Negative) Urine Urobilinogen Negative (Negative) Ur Leukocyte Esterase Negative (Negative) Administered Medications Discontinued Medications Gadobutrol (Gadobutrol 30ml Vial) 7.5 ml IV ONCE ONE Stop: 03/04/24 17:54 Last Admin: 03/04/24 17:50 Dose: 7.5 ml Documented By: GUERRERO Sodium Chloride (Nss) 1,000 mls @ 999 mls/hr IV .Q1H1M ONE Stop: 03/04/24 12:50 Last Infusion: 03/04/24 13:55 Dose: Infused Documented By: Admin: 03/04/24 12:12 Dose: 999 mls/hr Documented By: MICHELLE Lorazepam (Lorazepam 1 Mg/1 Ml Syr Ed Inj Use) 0.5 mg IV ONE STA Stop: 03/04/24 15:24 Last Admin: 03/04/24 16:29 Dose: 0.5 mg Documented By: VERA Meclizine HCl (Meclizine Hcl 25 Mg Tab) 25 mg PO NOW STA Stop: 03/04/24 18:44 Last Admin: 03/04/24 18:49 Dose: 25 mg Documented By: RIGOBERTO Imaging Data Radiologist's Impression: Chest X-Ray 03/04/24 11:51 XR chest 1V portable HISTORY: 88 years-old Female weakness COMPARISON: 12/29/2021 TECHNIQUE: AP view of the chest FINDINGS: Cardiac silhouette is enlarged. Mild chronic interstitial coarsening. No pneumothorax, large pleural effusion or airspace consolidation. Bones appear grossly intact. IMPRESSION: No acute process. ACT 112: Negative or not required by law. The above report was generated using voice recognition software. It may contain grammatical, syntax or spelling errors. Electronically signed by: Tyrell Waters M.D. 03/04/2024 12:[address] 03/04/24 11:51 CT head/brain wo con CLINICAL HISTORY: 88 years-old Female with dizzy. Acute dizziness TECHNIQUE: Multiple axial CT images of the head were obtained without contrast. A dose lowering technique was utilized adhering to the principles of ALARA. CT DOSE: 625.8 mGy.cm COMPARISON: Brain MRI 08/01/2013, head CT 02/27/2013 FINDINGS: No acute intracranial hemorrhage, midline shift, intracranial mass, hydrocephalus, territorial ischemia or abnormal extra-axial collection. Involutional changes with suggestion of mild chronic microvascular ischemic disease. Ill-defined decreased attenuation involving the aspect of the medullary brainstem is favored to be artifactual. The calvarium is intact. Prior bilateral lens repair. The paranasal sinuses, mastoid air cells, and middle ear cavities are clear. IMPRESSION: No acute intracranial abnormality identified. ACT 112: Negative or not required by law. The above report was generated using voice recognition software. It may contain grammatical, syntax or spelling errors. Electronically signed by: Tyrell Waters M.D. 03/04/2024 1:13 PM Discharge Plan Visit Data Chief Complaint: Dizziness Stated Complaint: DIZZINESS ED Provider: Moises Nava Discharge Problem: Dizziness, Lightheadedness, Stroke-like symptoms Patient Disposition: Admitted As Inpatient Condition: Fair Forms Stand Alone Forms: [facility] [place] Live[employer] Prescriptions Prescriptions: No Action amoxicillin 500 mg capsule 2,000 mg PO ONCE Qty: 4 0RF Rx Instructions: take all 4 caps one hour prior to dental procedure levothyroxine 75 mcg tablet 75 mcg PO DAILY Qty: 90 3RF valsartan 160 mg tablet 160 mg PO DAILY Qty: 90 3RF cimetidine 400 mg tablet 400 mg PO DAILY PRN (Reason: heartburn) Qty: 90 3RF aspirin 81 mg tablet,delayed release (DR/EC) 81 mg PO DAILY Qty: 90 3RF hydrochlorothiazide 12.5 mg tablet 12.5 mg PO DAILY Qty: 90 3RF fexofenadine [Jessika Allergy] 180 mg Tablet 180 mg PO QAM vitamin E 400 unit Capsule 400 unit PO QAM citalopram 10 mg tablet 10 mg PO UD Rx Instructions: not currently taking medication. She thinks it might be causing her dizziness triamcinolone acetonide 0.025 % cream 1 applic topical BID PRN (Reason: dermatitis) Rx Instructions: Please apply to affected areas Referrals Referrals: Silvia Cassidy MD [Primary Care Provider] -
[2024-03-04] MEDS: SODIUM CHLORIDE 0.9% 1,000 ML IV ONE (12:12)
--- NOTE | 2024-03-04 12:13 | XRay Report ---
XR chest 1V portable HISTORY: 88 years-old Female weakness COMPARISON: 12/29/2021 TECHNIQUE: AP view of the chest FINDINGS: Cardiac silhouette is enlarged. Mild chronic interstitial coarsening. No pneumothorax, large pleural effusion or airspace consolidation. Bones appear grossly intact. IMPRESSION: No acute process. ACT 112: Negative or not required by law. The above report was generated using voice recognition software. It may contain grammatical, syntax o r spelling errors. Electronically signed by: Tyrell Waters M.D. 03/04/2024 12:11 PM
[2024-03-04 12:17] LABS: Basophils # (auto) 0.05 K/uL (0.00-0.20); Hematocrit (blood only) 40.9 % (37.0-47.0); Hemoglobin 13.7 g/dl (12.0-16.0); Immature Granulocytes # (auto) 0.02 K/uL (0.01-0.20); Immature Granulocytes % (auto) 0.4 %; Lymphocytes # (auto) 0.95 K/uL (1.20-3.40); Lymphocytes % (auto) 19.4 %; Mean Corpuscular Hemoglobin 30.9 pg (25.0-34.0); Mean Corpuscular Hgb Conc 33.5 g/dL (32.0-36.0); Mean Corpuscular Volume 92.1 fL (80.0-100.0); Mean Platelet Volume 10.9 fL (9.4-12.4); Monocytes # (auto) 0.33 K/uL (0.11-0.59); Monocytes % (auto) 6.7 %; Neutrophils # (auto) 3.45 K/uL (1.40-6.50); Neutrophils % (auto) 70.5 %; Platelet Count 190 K/uL (130-400); RDW Coefficient of Variation 12.4 % (11.5-14.5); RDW Standard Deviation 41.7 fL (36.4-46.3); Red Blood Count 4.44 M/uL (4.20-5.40)
[2024-03-04 12:24] LABS: Albumin Globulin Ratio 1.5 (0.9-2); Albumin Level 4.2 gm/dl (3.4-5.0); BUN Creatinine Ratio 21.9 (10-20); Calcium 9.1 mg/dl (8.6-10.3); Creatinine Clr Calc Pharmacy 35.7 ml/min; Globulin 2.8 gm/dl (2.5-4.0); Magnesium 1.9 mg/dl (1.7-2.4); Potassium 4.5 mmol/L (3.5-5.1)
[2024-03-04 12:31] LABS: Troponin I High Sensitivity 4.7 pg/ml (0-14)
[2024-03-04 12:40] LABS: Thyroid Stimulating Hormone 0.887 uIu/ml (0.300-4.500)
--- NOTE | 2024-03-04 13:15 | CT Scan Report ---
CT head/brain wo con CLINICAL HISTORY: 88 years-old Female with dizzy. Acute dizziness TECHNIQUE: Multiple axial CT images of the head were obtained without contrast. A dose lowering tech nique was utilized adhering to the principles of ALARA. CT DOSE: 625.8 mGy.cm COMPARISON: Brain MRI 08/01/2013, head CT 02/27/2013 FINDINGS: No acute intracranial hemorrhage, midline shift, intracranial mass, hydrocephalus, territorial ischem ia or abnormal extra-axial collection. Involutional changes with suggestion of mild chronic microvasc ular ischemic disease. Ill-defined decreased attenuation involving the aspect of the medullary brains tem is favored to be artifactual. The calvarium is intact. Prior bilateral lens repair. The paranasal sinuses, mastoid air cells, and m iddle ear cavities are clear. IMPRESSION: No acute intracranial abnormality identified. ACT 112: Negative or not required by law. The above report was generated using voice recognition software. It may contain grammatical, syntax o r spelling errors. Electronically signed by: Tyrell Waters M.D. 03/04/2024 1:13 PM
[2024-03-04 14:04] LABS: Appearance Urine Clear (Clear); Bilirubin Urine Negative (Negative); Blood Urine Negative (Negative); Color Urine Yellow; Glucose Urine UA Negative (Negative); Ketones Urine Negative (Negative); Leukocyte Esterase Urine Negative (Negative); Nitrite Urine Negative (Negative); Protein Urine Negative (Negative); Specific Gravity Urine 1.011 (1.000-1.030); Urobilinogen Urine Negative (Negative)
[2024-03-04] MEDS: LORazepam 1 MG/1 ML SYR ED Inj Use IV STA (16:29)
[2024-03-04] MEDS: GADOBUTROL 30ML VIAL IV ONE (17:50)
[2024-03-04] MEDS: MECLIZINE HCL 25 MG TAB PO STA (18:49)
--- NOTE | 2024-03-04 19:51 | Magnetic Resonance Report ---
EXAM: MR brain wo/w con CLINICAL HISTORY: dizziness for 5 weeks and getting worse the past 2 days. TECHNIQUE: Different pulse sequences were performed in different planes for the brain without and with GD-DTPA injection. 7.5 mL of Gadavist was injected intravenously without complications. COMPARISON: Prior MR dated 10/12/2020. FINDINGS: No hyperacute or acute infarctions could be detected. Altered deep white matter signals are seen at the forceps minor, forceps major, periventricular, and centrum semiovale regions. These exhibit bright signals on T2 and FLAIR WI and intermediate signals on T1 WI. Findings suggest consequences of small vessel disease, e.g., hypertensive and/or diabetic vasculopathy. Age-appropriate degenerative involutional changes are denoted by symmetrical dilatation of the ventricular system, prominent cortical sulci, sylvian fissures, cerebellar, vermian folia, and basal cisterns. 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 Normal MRI appearance of the cerebellar parenchymal signals. Normal MRI appearance of the central ruiz matter aggregates. Normal MRI appearance of different anatomical parts of the brain stem, namely the midbrain, clay, and medulla oblongata. Normal MRI appearance of the petrous temporal bones, brainstem, vestibule cochlear nerves, and cerebellopontine angles with no definite masses. No shift of midline structures. No intracerebral or extra-axial hematomas or masses. Normal MRI appearance of orbital structures, both globes, optic nerves, optic chiasm, optic tracts, and optic radiations. The scanned paranasal sinuses are unremarkable. Hypertrophic nasal turbinates. Bilateral cataract surgery IMPRESSION: 1. No hyperacute or acute infarctions. 2. No intracerebral or extra axial hematoma. 3. Altered deep white matter signals with anatomical distribution and imaging features consistent with the consequences of small vessel disease e.g., hypertensive and/or diabetic vasculopathy. (Fazekas grade 1). 4. 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 5. Age-appropriate degenerative involutional changes. 6. Prior MRI study is incomplete for a comprehensive comparison. Electronically signed by Rodri Gonzalez 03-04-2024 7:51 PM
--- NOTE | 2024-03-04 20:46 | History & Physical Report ---
Date of Service March 04, 2024 Assessment & Plan (1) Stroke-like symptoms: (2) Lightheadedness: (3) Dizziness: (4) Ambulatory dysfunction: (5) Cystocele with prolapse: (6) PMR (polymyalgia rheumatica): (7) Hypertension: Plan Strokelike symptoms- Lightheadedness, dizziness, ambulatory dysfunction The patient will be admitted to telemetry for serial cardiac enzymes, serial EKG's, cardiac rhythm monitoring and a 2-D echocardiogram with Dopplers. CT scan head negative MRI brain consistent with small vessel disease Symptoms somewhat improved after 1 L normal saline, lorazepam 0.5 mg IV and meclizine 25 mg p.o. given by the ED UA negative, chest x-ray negative, bio fire negative Stroke without thrombolytics order set Consult PT/OT/speech/neurology Continue aspirin Symptoms more consistent with a metabolic encephalopathy, with above negative imaging studies Hypertension- Continue HCTZ and losartan Hypothyroidism- Continue levothyroxine at current dosing, TSH acceptable History of Present Illness Chief Complaint: The patient presents to the emergency department with a relatively acute worsening this morning upon awakening, some ongoing dizziness, lightheadedness and ambulatory dysfunction that initially began about 5 weeks ago. Primary Care Provider: Silvia Cassidy MD The patient is an 88-year-old female with a past medical history including cystocele with prolapse to undergo surgery in April, hypertension, anxiety, GERD, hyperlipidemia, hypothyroidism, and PMR. She reports approximately 5 weeks of intermittent dizziness, but in particular notes that upon arising from bed earlier this morning, she had severe dizziness and lightheadedness, where she had to hold onto the wall and other objects while walking. She reports going down the steps 1 seat at a time on her bottom. Ultimately making it to the door to unlock, to allow services to visit her. She denies any focal weakness in arms or legs. She denies any recent sick exposures or travels. Allergies Allergy/AdvReac Type Severity Reaction Status Date / Time codeine Allergy Intermediate Rash Verified 02/15/24 09:49 shellfish derived Allergy Unknown pruritis Verified 02/15/24 09:49 corn AdvReac Unknown hx Verified 02/15/24 09:49 diverticulitis; advised to avoid nut - unspecified AdvReac Unknown hx Verified 02/15/24 09:49 diverticulitis; advised to avoid morphine AdvReac Vomiting Verified 02/15/24 09:49 tramadol AdvReac Vomiting Verified 02/15/24 09:49 Home Medications Medication Instructions Recorded Confirmed Type fexofenadine 180 mg tablet 180 mg PO QAM 12/16/17 03/04/24 History (Jessika Allergy) vitamin E 268 mg (400 unit) capsule 400 unit PO QAM 12/16/17 03/04/24 History aspirin 81 mg tablet,delayed 81 mg PO DAILY #90 tabs 10/11/20 03/04/24 Rx release cimetidine 400 mg tablet 400 mg PO DAILY PRN heartburn #90 02/18/22 03/04/24 Rx tabs amoxicillin 500 mg capsule 2,000 mg (4 x 500 mg) PO ONCE #4 11/12/22 03/04/24 Rx caps hydrochlorothiazide 12.5 mg tablet 12.5 mg PO DAILY #90 tabs 09/04/23 03/04/24 Rx levothyroxine 75 mcg tablet 75 mcg PO DAILY #90 tabs 11/14/23 03/04/24 Rx valsartan 160 mg tablet 160 mg PO DAILY #90 tabs 11/20/23 03/04/24 Rx citalopram 10 mg tablet 10 mg PO UD 03/04/24 03/04/24 History triamcinolone acetonide 0.025 % 1 applic topical BID PRN dermatitis 03/04/24 03/04/24 History topical cream Past Med/Surg History Problem List (Updated 03/05/24 @ 00:53 by Fabian Ballard MD) Ambulatory dysfunction Stroke-like symptoms (Acute) Lightheadedness (Acute) Dizziness (Acute) Cystocele with prolapse Abnormal PFT Hypertension (Acute) Anxiety Carpal tunnel syndrome on both sides Right rotator cuff tear GERD (gastroesophageal reflux disease) controlled Hypothyroidism Hyperlipidemia PMR (polymyalgia rheumatica) Medical History Obesity Diverticular disease PMR (polymyalgia rheumatica) Osteoarthritis Prolapsed bladder Urinary leakage Irritable bowel disease Cancer skin cancer s/p excision Surgical History H/O bilateral hip replacements History of cataract surgery History of dilatation and curettage History of total abdominal hysterectomy and bilateral salpingo-oophorectomy History of discectomy History of total hip arthroplasty History of colonoscopy History of cholecystectomy History of tooth extraction History of tonsillectomy Family History Mother Family history of diabetes mellitus Stroke Brother Family history of diabetes mellitus Grandmother Family history of diabetes mellitus Family/Other Family history of diabetes mellitus Sister Arthritis Father Stroke Social History Smoking Status: Never smoker Second Hand Exposure: No; Do You Dip or Chew Tobacco: No; Hx Alcohol Use: No Hx Substance Use: No Preferred Language: Greek Communication Ability: Effective Electrician Manager Required: No Beliefs That Will Affect Care: None Current Living Situation: Alone current occupational status: retired Feels Safe at Home: Yes Safety Concerns: Feels Safe At This Time Diet: regular caffeine: Yes Dental Care, Regularly: No Seatbelt Use: sometimes Sunscreen Use: Yes Assistive Devices: Cane Assistive Devices Comment: cane for longer distances Review of Systems Review of Systems: The patient denies chest pain, palpitations, shortness of breath, dyspnea on exertion, cough, lower extremity swelling, sore throat, fevers, chills, sweats, nausea, vomiting, diarrhea , constipation, abdominal pain, pelvic pain, blood in urine or stool, dysuria, urinary frequency or urgency, loss of consciousness, rash, abnormal bruising or bleeding, focal weakness, numbness or tingling in arms or legs, generalized arthralgias or myalgias, back or neck pain, or night sweats. The review of systems is otherwise negative other than for that already noted above, and at least 10 systems have been reviewed. Physical Exam Physical Exam: The patient is awake, alert and oriented 3, well developed and well nourished, normocephalic and atraumatic, lying in bed and in no acute distress. HEENT--PERRL, EOMI, mucous membranes and oropharynx mildly dry. Neck--supple. No JVD. No bruits. Thyroid normal, trachea midline, no adenopathy. Heart--normal S1 and S2. No murmurs, rubs or gallops. Lungs--clear bilaterally, no respiratory distress, no accessory muscle use. Abdomen--normal bowel sounds and soft. Nontender. Nondistended, no hernias or masses, no organomegaly. Extremities--no cyanosis or clubbing. No edema. There are good distal pulses b/l. Dermatologic--normal skin turgor, normal color, no abnormal lymph nodes, no rash. Neurologic--cranial nerves II through XII grossly intact. Rheumatologic--normal range of motion. Psychiatric--normal affect. Results & Data Results & Data Vital Signs (Past 12 Hours) Vital Signs Temp Pulse Pulse Resp BP BP Pulse Ox 03/04/24 18:38 72 16 119/67 95 03/04/24 16:30 75 18 151/94 H 96 03/04/24 14:29 73 16 118/86 97 03/04/24 11:51 96 03/04/24 11:41 63 03/04/24 11:22 18 03/04/24 11:22 03/04/24 11:17 36.9 C 66 18 174/98 H 96 O2 Del Method 03/04/24 18:38 Room Air 03/04/24 16:30 Room Air 03/04/24 14:29 Room Air 03/04/24 11:51 03/04/24 11:41 03/04/24 11:22 03/04/24 11:22 Room Air 03/04/24 11:17 Room Air Laboratory Results Laboratory Results WBC 4.90 K/ul (4.8-10.8) 03/04/24 11:41 RBC 4.44 M/uL (4.20-5.40) 03/04/24 11:41 Hgb 13.7 g/dl (12.0-16.0) 03/04/24 11:41 Hct 40.9 % (37.0-47.0) 03/04/24 11:41 MCV 92.1 fL (80.0-100.0) 03/04/24 11:41 MCH 30.9 pg (25.0-34.0) 03/04/24 11:41 MCHC 33.5 g/dL (32.0-36.0) 03/04/24 11:41 RDW Std Deviation 41.7 fL (36.4-46.3) 03/04/24 11:41 RDW Coeff of Mateo 12.4 % (11.5-14.5) 03/04/24 11:41 Plt Count 190 K/uL (130-400) 03/04/24 11:41 MPV 10.9 fL (9.4-12.4) 03/04/24 11:41 Immature Gran % (Auto) 0.4 % 03/04/24 11:41 Neut % (Auto) 70.5 % 03/04/24 11:41 Lymph % (Auto) 19.4 % 03/04/24 11:41 Beaver % (Auto) 6.7 % 03/04/24 11:41 Eos % (Auto) 2.0 % 03/04/24 11:41 Baso % (Auto) 1.0 % 03/04/24 11:41 Neut # (Auto) 3.45 K/uL (1.40-6.50) 03/04/24 11:41 Lymph # (Auto) 0.95 K/uL (1.20-3.40) L 03/04/24 11:41 Beaver # (Auto) 0.33 K/uL (0.11-0.59) 03/04/24 11:41 Eos # (Auto) 0.10 K/uL (0.00-0.50) 03/04/24 11:41 Baso # (Auto) 0.05 K/uL (0.00-0.20) 03/04/24 11:41 Immature Gran # (Auto) 0.02 K/uL (0.01-0.20) 03/04/24 11:41 Sodium 138 mmol/L (136-145) 03/04/24 11:41 Potassium 4.5 mmol/L (3.5-5.1) 03/04/24 11:41 Chloride 103 mmol/L (98-107) 03/04/24 11:41 Carbon Dioxide 29 mmol/L (21-32) 03/04/24 11:41 Anion Gap 6 (3-11) 03/04/24 11:41 BUN 21 mg/dl (6-23) 03/04/24 11:41 Creatinine 0.96 mg/dl (0.6-1.2) 03/04/24 11:41 Est Cr Clr Drug Dosing 35.7 ml/min 03/04/24 11:41 eGFR 56.55 03/04/24 11:41 BUN/Creatinine Ratio 21.9 (10-20) H 03/04/24 11:41 Glucose 96 mg/dl (70-99(Fasting)) 03/04/24 11:41 Calcium 9.1 mg/dl (8.6-10.3) 03/04/24 11:41 Magnesium 1.9 mg/dl (1.7-2.4) 03/04/24 11:41 Total Bilirubin 1.0 mg/dl (0.2-1.0) 03/04/24 11:41 AST 26 U/L (13-39) 03/04/24 11:41 ALT 16 U/L (7-52) 03/04/24 11:41 Alkaline Phosphatase 70 U/L (34-104) 03/04/24 11:41 Troponin I High Sens 4.7 pg/ml (0-14) 03/04/24 11:41 Total Protein 7.0 gm/dl (6.0-8.3) 03/04/24 11:41 Albumin 4.2 gm/dl (3.4-5.0) 03/04/24 11:41 Globulin 2.8 gm/dl (2.5-4.0) 03/04/24 11:41 Albumin/Globulin Ratio 1.5 (0.9-2) 03/04/24 11:41 TSH 0.887 uIu/ml (0.300-4.500) 03/04/24 11:41 Urine Color Yellow 03/04/24 13:49 Urine Appearance Clear (Clear) 03/04/24 13:49 Urine pH 6.0 (4.5-7.5) 03/04/24 13:49 Ur Specific Shoshone 1.011 (1.000-1.030) 03/04/24 13:49 Urine Protein Negative (Negative) 03/04/24 13:49 Urine Glucose (UA) Negative (Negative) 03/04/24 13:49 Urine Ketones Negative (Negative) 03/04/24 13:49 Urine Blood Negative (Negative) 03/04/24 13:49 Urine Nitrite Negative (Negative) 03/04/24 13:49 Urine Bilirubin Negative (Negative) 03/04/24 13:49 Urine Urobilinogen Negative (Negative) 03/04/24 13:49 Ur Leukocyte Esterase Negative (Negative) 03/04/24 13:49 Adenovirus (PCR) Not Detected (NotDetected) 03/04/24 20:39 B. pertussis DNA (PCR) Not Detected (NotDetected) 03/04/24 20:39 B.parapertussis DNA PCR Not Detected (NotDetected) 03/04/24 20:39 C. pneumoniae DNA (PCR) Not Detected (NotDetected) 03/04/24 20:39 Coronavirus OC43 (PCR) Not Detected (NotDetected) 03/04/24 20:39 Coronavirus HKU1 (PCR) Not Detected (NotDetected) 03/04/24 20:39 Coronavirus 229E (PCR) Not Detected (NotDetected) 03/04/24 20:39 SARS-CoV-2 (PCR) Not Detected (NotDetected) 03/04/24 20:39 Coronavirus NL63 (PCR) Not Detected (NotDetected) 03/04/24 20:39 Human Metapneumovir PCR Not Detected (NotDetected) 03/04/24 20:39 Influenza Type A (PCR) Not Detected (NotDetected) 03/04/24 20:39 Influenza Type B (PCR) Not Detected (NotDetected) 03/04/24 20:39 M. pneumoniae (PCR) Not Detected (NotDetected) 03/04/24 20:39 Parainfluenza 1 (PCR) Not Detected (NotDetected) 03/04/24 20:39 Parainfluenza 2 (PCR) Not Detected (NotDetected) 03/04/24 20:39 Parainfluenza 3 (PCR) Not Detected (NotDetected) 03/04/24 20:39 Parainfluenza 4 (PCR) Not Detected (NotDetected) 03/04/24 20:39 RSV (PCR) Not Detected (NotDetected) 03/04/24 20:39 Entero/Rhino (PCR) Not Detected (NotDetected) 03/04/24 20:39 Impressions Chest X-Ray 03/04/24 11:51 XR chest 1V portable HISTORY: 88 years-old Female weakness COMPARISON: 12/29/2021 TECHNIQUE: AP view of the chest FINDINGS: Cardiac silhouette is enlarged. Mild chronic interstitial coarsening. No pneumothorax, large pleural effusion or airspace consolidation. Bones appear grossly intact. IMPRESSION: No acute process. ACT 112: Negative or not required by law. The above report was generated using voice recognition software. It may contain grammatical, syntax or spelling errors. Electronically signed by: Tyrell Waters M.D. 03/04/2024 12:[address] 03/04/24 11:51 CT head/brain wo con CLINICAL HISTORY: 88 years-old Female with dizzy. Acute dizziness TECHNIQUE: Multiple axial CT images of the head were obtained without contrast. A dose lowering technique was utilized adhering to the principles of ALARA. CT DOSE: 625.8 mGy.cm COMPARISON: Brain MRI 08/01/2013, head CT 02/27/2013 FINDINGS: No acute intracranial hemorrhage, midline shift, intracranial mass, hydrocephalus, territorial ischemia or abnormal extra-axial collection. Involutional changes with suggestion of mild chronic microvascular ischemic disease. Ill-defined decreased attenuation involving the aspect of the medullary brainstem is favored to be artifactual. The calvarium is intact. Prior bilateral lens repair. The paranasal sinuses, mastoid air cells, and middle ear cavities are clear. IMPRESSION: No acute intracranial abnormality identified. ACT 112: Negative or not required by law. The above report was generated using voice recognition software. It may contain grammatical, syntax or spelling errors. Electronically signed by: Tyrell Waters M.D. 03/04/2024 1:13 PM Brain MRI 03/04/24 14:15 EXAM: MR brain wo/w con CLINICAL HISTORY: dizziness for 5 weeks and getting worse the past 2 days. TECHNIQUE: Different pulse sequences were performed in different planes for the brain without and with GD-DTPA injection. 7.5 mL of Gadavist was injected intravenously without complications. COMPARISON: Prior MR dated 10/12/2020. FINDINGS: No hyperacute or acute infarctions could be detected. Altered deep white matter signals are seen at the forceps minor, forceps major, periventricular, and centrum semiovale regions. These exhibit bright signals on T2 and FLAIR WI and intermediate signals on T1 WI. Findings suggest consequences of small vessel disease, e.g., hypertensive and/or diabetic vasculopathy. Age-appropriate degenerative involutional changes are denoted by symmetrical dilatation of the ventricular system, prominent cortical sulci, sylvian fissures, cerebellar, vermian folia, and basal cisterns. 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 Normal MRI appearance of the cerebellar parenchymal signals. Normal MRI appearance of the central ruiz matter aggregates. Normal MRI appearance of different anatomical parts of the brain stem, namely the midbrain, clay, and medulla oblongata. Normal MRI appearance of the petrous temporal bones, brainstem, vestibule cochlear nerves, and cerebellopontine angles with no definite masses. No shift of midline structures. No intracerebral or extra-axial hematomas or masses. Normal MRI appearance of orbital structures, both globes, optic nerves, optic chiasm, optic tracts, and optic radiations. The scanned paranasal sinuses are unremarkable. Hypertrophic nasal turbinates. Bilateral cataract surgery IMPRESSION: 1. No hyperacute or acute infarctions. 2. No intracerebral or extra axial hematoma. 3. Altered deep white matter signals with anatomical distribution and imaging features consistent with the consequences of small vessel disease e.g., hypertensive and/or diabetic vasculopathy. (Fazekas grade 1). 4. 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 5. Age-appropriate degenerative involutional changes. 6. Prior MRI study is incomplete for a comprehensive comparison. Electronically signed by Rodri Gonzalez 03-04-2024 7:51 PM Code Status & VTE Plan Code Status Full code VTE Prophylaxis Plan VTE Prophylaxis will be ordered: Yes PG Care Time/CCT Total # of Minutes Spent Total Time Spent with Patient: Total time spent is greater than 50% in coordination of care (as documented) at patient's floor/unit and/or counseling patient: Coding Level of Care Code 08288 INT INP/OBS CARE 3/75MIN Diagnoses Stroke-like symptoms R29.90 Lightheadedness R42 Dizziness R42 Ambulatory dysfunction R26.2 Cystocele with prolapse N81.4 PMR (polymyalgia rheumatica) M35.3 Primary hypertension I10 Hypertension type: primary hypertension (7) Hypertension Hypertension type: primary hypertension Qualified Code(s): I10 - Essential (primary) hypertension
[2024-03-04 21:49] LABS: Adenovirus PCR Not Detected (NotDetected); Bordetella parapertussis PCR Not Detected (NotDetected); Bordetella pertussis PCR Not Detected (NotDetected); Chlamydia pneumoniae PCR Not Detected (NotDetected); Coronavirus 229E PCR Not Detected (NotDetected); Coronavirus CoV-2 (COVID19)PCR Not Detected (NotDetected); Coronavirus HKU1 PCR Not Detected (NotDetected); Coronavirus NL63 PCR Not Detected (NotDetected); Coronavirus OC43PCR Not Detected (NotDetected); Human Metapneumovirus PCR Not Detected (NotDetected); Influenza A PCR Not Detected (NotDetected); Influenza B PCR Not Detected (NotDetected); Mycoplasma pneumoniae PCR Not Detected (NotDetected); Parainfluenza Virus 1 PCR Not Detected (NotDetected); Parainfluenza Virus 2 PCR Not Detected (NotDetected); Parainfluenza Virus 3 PCR Not Detected (NotDetected); Parainfluenza Virus 4 PCR Not Detected (NotDetected); Respiratory Syncytial VirusPCR Not Detected (NotDetected); Rhinovirus/Enterovirus PCR Not Detected (NotDetected)
--- NOTE | 2024-03-04 21:55 | Electrocardiogram Report ---
Test Reason : Blood Pressure : */* mmHG Vent. Rate : 64 BPM Atrial Rate : 64 BPM P-R Int : 178 ms QRS Dur : 92 ms QT Int : 422 ms P-R-T Axes : 68 -61 36 degrees QTcB Int : 435 ms Sinus rhythm with Premature supraventricular complexes Incomplete right bundle branch block Left anterior fascicular block Abnormal ECG When compared with ECG of 29-Dec-2021 19:51, Premature supraventricular complexes are now Present Left anterior fascicular block is now Present Incomplete right bundle branch block is now Present Confirmed by Yvon Keen ([id number]) on 03/04/2024 9:55:17 PM Referred By: Confirmed By: Yvon Keen
[2024-03-04] MEDS ORDERED: ONDANSETRON INJ 2 MG/ML 2 ML VIAL IV PRN (22:03)
[2024-03-04] MEDS ORDERED: NON-FORMULARY MEDICATION (Citalopram 10 mg tablet) PO SCH (22:03)
[2024-03-04] MEDS ORDERED: PHARMACIST DISCHARGE MED REC CONSULT PRN (22:03)
[2024-03-04] MEDS ORDERED: TRIAMCINOLONE ACET 0.025% CR 15 GM TUBE TOP PRN (22:03)
[2024-03-05 06:41] LABS: Basophils # (auto) 0.05 K/uL (0.00-0.20); Basophils % (auto) 1.1 %; Eosinophils # (auto) 0.27 K/uL (0.00-0.50); Eosinophils % (auto) 6.1 %; Hematocrit (blood only) 37.8 % (37.0-47.0); Hemoglobin 12.8 g/dl (12.0-16.0); Immature Granulocytes # (auto) 0.01 K/uL (0.01-0.20); Immature Granulocytes % (auto) 0.2 %; Lymphocytes # (auto) 1.67 K/uL (1.20-3.40); Lymphocytes % (auto) 37.5 %; Mean Corpuscular Hemoglobin 31.5 pg (25.0-34.0); Mean Corpuscular Hgb Conc 33.9 g/dL (32.0-36.0); Mean Corpuscular Volume 93.1 fL (80.0-100.0); Mean Platelet Volume 10.1 fL (9.4-12.4); Monocytes # (auto) 0.46 K/uL (0.11-0.59); Monocytes % (auto) 10.3 %; Neutrophils # (auto) 1.99 K/uL (1.40-6.50); Neutrophils % (auto) 44.8 %; Platelet Count 177 K/uL (130-400); RDW Coefficient of Variation 12.2 % (11.5-14.5); RDW Standard Deviation 41.8 fL (36.4-46.3); Red Blood Count 4.06 M/uL (4.20-5.40); White Blood Count 4.45 K/ul (4.8-10.8)
[2024-03-05 06:58] LABS: Albumin Level 3.3 gm/dl (3.4-5.0); BUN Creatinine Ratio 18.1 (10-20); Calcium 8.5 mg/dl (8.6-10.3); Chol HDL Ratio 2.6 (0-5); Creatinine Clr Calc Pharmacy 35.6 ml/min; Magnesium 1.9 mg/dl (1.7-2.4); Phosphorus 3.5 mg/dl (2.5-4.9); Potassium 4.5 mmol/L (3.5-5.1)
[2024-03-05 07:05] LABS: Troponin I High Sensitivity 6.2 pg/ml (0-14)
[2024-03-05] MEDS: hydroCHLOROthiazide 25 MG TAB PO SCH (08:03)
[2024-03-05] MEDS: ROSUVASTATIN CALCIUM 20 MG TAB PO SCH (08:04)
[2024-03-05] MEDS: VALSARTAN 80 MG TAB PO SCH (08:04)
[2024-03-05] MEDS: FEXOFENADINE HCL 180 MG TAB PO SCH (08:04)
[2024-03-05] MEDS: ASPIRIN 81 MG ECTAB PO SCH (08:04)
[2024-03-05] MEDS: TOCOPHERYL, DL-ALPHA 400 UNITS 180 MG CAP PO SCH (08:05)
[2024-03-05] MEDS: LEVOTHYROXINE SODIUM 75 MCG TABLET PO SCH (08:05)
[2024-03-05] MEDS ORDERED: ASPIRIN 81 MG ECTAB PO SCH (09:00)
--- NOTE | 2024-03-05 09:23 | Neurology Consultation ---
Date of Consultation March 05, 2024 Assessment & Plan (1) BPPV (benign paroxysmal positional vertigo): I suspect this patient has benign positional paroxysmal vertigo, possibly horizontal canal BPPV as her episodes seem to characteristically occur with bending over and looking down. I was able to induce some brief symptoms on examination but did not observe any obvious nystagmus. Vertebrobasilar insufficiency seems unlikely, but should probably be excluded. Because patient appeared to have a shellfish allergy, would probably avoid iodinated contrast agents. Therefore, would recommend an MRA of the brain and neck. PT consultation. Meclizine as ordered. If meclizine is not effective, consider a trial of a low- dose of clonazepam. Please call with any questions. Patient should not require additional outpatient neurology follow-up History of Present Illness Reason for Consultation: Strokelike symptoms Requesting Physician: Nellie Attending Physician: Vasquez Tejada MD History of Present Illness The patient is an 88-year-old female who complains of episodic dizziness which began about 5 weeks ago. She indicates that dizziness has typically been worse in the morning and has been triggered by leaning forward as well as by lying on her back, sometimes worse on her left side. He describes a vague feeling of motion or spinning in her head. The episodes are intense and seem to improve with sitting still. She denies any ear pain or tinnitus. She does have a history of bilateral hearing loss, has hearing aids. She has been attributing some of her symptoms to a prescription for buspirone that was recently started, although no change in her symptoms after stopping this medication. He denies any associated headache or history of migraine. She denies experiencing any associated change in vision or speech. No associated weakness or sensory loss of the limbs. She did have a CT of the head completed yesterday that was negative for hemorrhage or acute process. A brain MRI was completed as well which was also negative for acute or subacute stroke. There is chronic small vessel ischemic disease. There is incidental cystic change within the choroid plexus bilaterally. I independently reviewed these images. Allergies Allergy/AdvReac Type Severity Reaction Status Date / Time codeine Allergy Intermediate Rash Verified 02/15/24 09:49 shellfish derived Allergy Unknown pruritis Verified 02/15/24 09:49 corn AdvReac Unknown hx Verified 02/15/24 09:49 diverticulitis; advised to avoid nut - unspecified AdvReac Unknown hx Verified 02/15/24 09:49 diverticulitis; advised to avoid morphine AdvReac Vomiting Verified 02/15/24 09:49 tramadol AdvReac Vomiting Verified 02/15/24 09:49 Home Medications Medication Instructions Recorded Confirmed Type fexofenadine 180 mg tablet 180 mg PO QAM 12/16/17 03/04/24 History (Jessika Allergy) vitamin E 268 mg (400 unit) capsule 400 unit PO QAM 12/16/17 03/04/24 History aspirin 81 mg tablet,delayed 81 mg PO DAILY #90 tabs 10/11/20 03/04/24 Rx release cimetidine 400 mg tablet 400 mg PO DAILY PRN heartburn #90 02/18/22 03/04/24 Rx tabs amoxicillin 500 mg capsule 2,000 mg (4 x 500 mg) PO ONCE #4 11/12/22 03/04/24 Rx caps hydrochlorothiazide 12.5 mg tablet 12.5 mg PO DAILY #90 tabs 09/04/23 03/04/24 Rx levothyroxine 75 mcg tablet 75 mcg PO DAILY #90 tabs 11/14/23 03/04/24 Rx valsartan 160 mg tablet 160 mg PO DAILY #90 tabs 11/20/23 03/04/24 Rx citalopram 10 mg tablet 10 mg PO UD 03/04/24 03/04/24 History triamcinolone acetonide 0.025 % 1 applic topical BID PRN dermatitis 03/04/24 03/04/24 History topical cream Patient History Medical History Obesity Diverticular disease PMR (polymyalgia rheumatica) Osteoarthritis Prolapsed bladder Urinary leakage Irritable bowel disease Cancer skin cancer s/p excision Surgical History H/O bilateral hip replacements History of cataract surgery right/left; right cataract extraction: 01/06/18: MAC sedation at [facility] History of dilatation and curettage MULTIPLE History of total abdominal hysterectomy and bilateral salpingo-oophorectomy History of discectomy LUMBAR History of total hip arthroplasty RIGHT History of colonoscopy History of cholecystectomy History of tooth extraction History of tonsillectomy Family History Mother Family history of diabetes mellitus Stroke Brother Family history of diabetes mellitus Grandmother Family history of diabetes mellitus Family/Other Family history of diabetes mellitus Sister Arthritis Father Stroke Social History Smoking Status: Never smoker Second Hand Exposure: No; Do You Dip or Chew Tobacco: No; Hx Alcohol Use: No Hx Substance Use: No Preferred Language: Kiswahili Communication Ability: Effective Staff Accountant Required: No Beliefs That Will Affect Care: None Current Living Situation: Alone current occupational status: retired Feels Safe at Home: Yes Safety Concerns: Feels Safe At This Time Diet: regular caffeine: Yes Dental Care, Regularly: No Seatbelt Use: sometimes Sunscreen Use: Yes Assistive Devices: Cane Assistive Devices Comment: cane for longer distances Review of Systems Constitutional: no fever and no chills Eyes: no blind spots and no diplopia Ear, Nose, Mouth, Throat: as per Subjective / HPI and + hearing loss Respiratory: no cough and no dyspnea Cardiovascular: no chest pain and no palpitations Gastrointestinal: no nausea and no vomiting Genitourinary: no dysuria Musculoskeletal: no myalgia Integumentary: no rash and no lesions Neurologic: as per Subjective / HPI Psychiatric: + anxiety Hematologic / Lymphatic: no easy bleeding and no easy bruising Exam (Neuro) Constitutional: well developed and well nourished; no acute distress Eyes: normal visual branch by confrontation, PERRL, normal accommodation and EOM intact bilaterally; no nystagmus Neurologic: Oriented to:: Person, Place and Time Memory: Short Term Intact and Remote Intact Attention: Span Intact and Concentration Intact Language: Naming Objects and Repeating Phrases Speech Fluency: negative Dysarthria Speech Aphasia: negative Aphasia Fund of Knowledge: Current Events, Past History and Vocabulary Cranial Nerves: Normal II (Visual branch full to confrontation, visual acuity normal), III, IV, (Pupils equal round reactive to light and accommodation, eye movements normal), V (Facial sensation intact), VII (There is no facial droop or weakness), VIII (Hearing intact), IX, X (Palate elevates to midline), XI (Shoulder shrug intact) and XII (Tongue protrudes to midline) Motor Strength: Normal Lower Extremities and Normal Upper Extremities; negative Pronator Drift Motor Tone: Normal Lower Extremities and Normal Upper Extremities Muscle Bulk/Involuntary Movements: No Involuntary Movements; negative Muscle Atrophy Sensation: Light Touch Intact, Pain/Temperature Intact, Vibration Intact and Proprioception Intact Coordination: Normal; negative Limited Balance, Dysdiadochokinesia, Finger-Nose Abnormal or Heel-Burks Abnormal Deep Tendon Reflexes: Rt Triceps: 2+, Lt Triceps: 2+, Rt Biceps: 2+, Lt Biceps: 2+, Rt Brachioradialis: 2+, Lt Brachioradialis: 2+, Rt Patellar: 2+, Lt Patellar: 2+, Rt Ankle: 1+ and Lt Ankle: 1+ Special Tests: negative Babinski Present Results & Data Vital Signs (Past 12 Hours) Vital Signs Temp Pulse Pulse Resp BP BP Pulse Ox 03/05/24 08:07 37.0 C 69 20 147/79 H 93 03/05/24 03:36 36.8 C 67 18 153/79 H 98 03/04/24 22:27 36.7 C 59 L 18 141/82 H 96 03/04/24 22:14 61 03/04/24 22:03 03/04/24 21:50 36.7 C 59 L 18 141/82 H 96 03/04/24 21:40 61 18 132/64 94 O2 Del Method O2 Del Method 03/05/24 08:07 Room Air 03/05/24 03:36 Room Air 03/04/24 22:27 Room Air 03/04/24 22:14 03/04/24 22:03 Room Air 03/04/24 21:50 Room Air 03/04/24 21:40 Laboratory Results WBC 4.45, hemoglobin 12.8, hematocrit 37.8, platelet count 177, sodium 141, potassium 4.5, BUN 17, creatinine 0.94, glucose 89, calcium 8.5, magnesium 1.9, AST 20, high-sensitivity troponin 6.2, triglycerides 105, cholesterol 192, LDL 98, VLDL 20, HDL 70 Diagnostic Findings Electrocardiogram reveals sinus rhythm with premature ventricular complexes Coding Level of Care Code 91618 INT INP/OBS CARE 2/55MIN Diagnoses BPPV (benign paroxysmal positional vertigo) H81.10 Time Spent (min) 60 Comment Total time includes patient contact, chart review, counseling, note preparation
[2024-03-05 09:27] LABS: Estimated Average Glucose 103 mg/dl; Hemoglobin A1C 5.2 % (4.5-5.6)
[2024-03-05] MEDS: GADOBUTROL 65ML VIAL IV ONE (11:40)
--- NOTE | 2024-03-05 12:11 | Hospitalist Progress Note ---
Date of Service March 05, 2024 Assessment & Plan (1) BPPV (benign paroxysmal positional vertigo): (2) Stroke-like symptoms: (3) Lightheadedness: (4) Dizziness: (5) Ambulatory dysfunction: (6) Cystocele with prolapse: (7) PMR (polymyalgia rheumatica): (8) Hypertension: Plan Patient presents with Lightheadedness, dizziness, ambulatory dysfunction Most likely due to BPPV, [place] hallpike positive as elicited by RN CT scan head negative MRI brain consistent with small vessel disease Obtain MRA per neurology May need Paul's manuver Continue Meclizine. may benefit from Clonazepam per neurology Hypertension- Continue HCTZ and losartan Hypothyroidism- Continue levothyroxine at current dosing, TSH acceptable Admission and Anticipated Discharge Date Admission Date: March 04, 2024 Subjective patient seen and examined, still some bouts of dizziness Review of Systems Review of Systems: All systems reviewed are negative, apart from the ones contained in the history. Physical Exam Physical Exam: The patient is awake, alert and oriented 3, well developed and well nourished, normocephalic and atraumatic, lying in bed and in no acute distress. HEENT--PERRL, EOMI, mucous membranes and oropharynx mildly dry Neck--supple. No JVD. No bruits. Thyroid normal, trachea midline, no adenopathy. Heart--normal S1 and S2. No murmurs, rubs or gallops. Lungs--clear bilaterally, no respiratory distress, no accessory muscle use. Abdomen--normal bowel sounds and soft. Extremities--no cyanosis or clubbing. No edema. Dermatologic--normal skin turgor, normal color, no abnormal lymph nodes, no rash. Neurologic--cranial nerves II through XII grossly intact. Rheumatologic--normal range of motion. Psychiatric--normal affect. Results & Data Results & Data Vital Signs (Past 12 Hours) Vital Signs Temp Pulse Resp BP Pulse Ox O2 Del Method 03/05/24 08:07 98.6 F 69 20 147/79 H 93 Room Air 03/05/24 03:36 98.2 F 67 18 153/79 H 98 Room Air PG Care Time/CCT Total # of Minutes Spent Total Time Spent with Patient: Total time spent is greater than 50% in coordination of care (as documented) at patient's floor/unit and/or counseling patient: Coding Level of Care Code 95658 SUB INP/OBS CARE 2/35MIN Diagnoses BPPV (benign paroxysmal positional vertigo) H81.10 Stroke-like symptoms R29.90 Lightheadedness R42 Dizziness R42 Ambulatory dysfunction R26.2 Cystocele with prolapse N81.4 PMR (polymyalgia rheumatica) M35.3 Primary hypertension I10 Hypertension type: primary hypertension Time Spent (min) 35 (8) Hypertension Hypertension type: primary hypertension Qualified Code(s): I10 - Essential (primary) hypertension
--- NOTE | 2024-03-05 12:30 | Magnetic Resonance Report ---
EXAM: MR angio neck wo/w con CLINICAL HISTORY: dizziness for 5 weeks and getting worse the past 2 days. worse with standing. TECHNIQUE: Multiplanar, multi-echo MRI sequences were taken through the neck without and with 7.5ml gadavist intravenous contrast administration. COMPARISON: None. FINDINGS: The common carotid arteries, internal carotid arteries, and external carotid arteries bilaterally are patent with normal flow. The vertebral arteries are patent bilaterally with normal flow. No evidence of stenosis, occlusion, dissection, or aneurysm. The subclavian arteries are unremarkable bilaterally. IMPRESSION: Normal MRA of the neck. No evidence of vascular abnormalities. Electronically signed by Rodri Gonzalez 03-05-2024 12:29 PM
--- NOTE | 2024-03-05 12:35 | XCELERA ---
[id number]
--- NOTE | 2024-03-05 12:44 | Magnetic Resonance Report ---
EXAM: MR angio head wo con CLINICAL HISTORY: dizziness for 5 weeks and getting worse the past 2 days. worse with standing. injection TECHNIQUE: MRA of the head was performed without and with 7.5ml Gadavist intravenous contrast. 3D Risu-bv-Cxbkrq (TOF) sequences were acquired through the [place]. COMPARISON: No prior studies available for comparison. FINDINGS: The [place] is intact with normal flow voids in the anterior, middle, and posterior cerebral arteries bilaterally. Probable type 1 (azygos) anterior cerebral artery- variant anatomy. The basilar artery and vertebral arteries are patent without stenosis, occlusion, or aneurysm. No evidence of vascular malformation, aneurysm, or significant stenosis. Normal appearance of the dural venous sinuses. IMPRESSION: Normal intracranial MRA. No evidence of vascular abnormalities. Electronically signed by Rodri Gonzalez 03-05-2024 12:44 PM
[2024-03-06] MEDS ORDERED: Nursing to Pharmacy Communication SCH (05:30)
[2024-03-06 06:57] LABS: Basophils # (auto) 0.07 K/uL (0.00-0.20); Basophils % (auto) 1.3 %; Eosinophils # (auto) 0.31 K/uL (0.00-0.50); Eosinophils % (auto) 5.5 %; Hematocrit (blood only) 38.9 % (37.0-47.0); Hemoglobin 12.8 g/dl (12.0-16.0); Immature Granulocytes # (auto) 0.03 K/uL (0.01-0.20); Immature Granulocytes % (auto) 0.5 %; Lymphocytes # (auto) 1.78 K/uL (1.20-3.40); Lymphocytes % (auto) 31.8 %; Mean Corpuscular Hemoglobin 30.8 pg (25.0-34.0); Mean Corpuscular Hgb Conc 32.9 g/dL (32.0-36.0); Mean Corpuscular Volume 93.5 fL (80.0-100.0); Mean Platelet Volume 10.3 fL (9.4-12.4); Monocytes # (auto) 0.52 K/uL (0.11-0.59); Monocytes % (auto) 9.3 %; Neutrophils # (auto) 2.89 K/uL (1.40-6.50); Neutrophils % (auto) 51.6 %; Platelet Count 174 K/uL (130-400); RDW Coefficient of Variation 12.3 % (11.5-14.5); RDW Standard Deviation 42.4 fL (36.4-46.3); Red Blood Count 4.16 M/uL (4.20-5.40)
[2024-03-06 07:15] LABS: Albumin Level 3.3 gm/dl (3.4-5.0); BUN Creatinine Ratio 24.5 (10-20); Calcium 8.6 mg/dl (8.6-10.3); Creatinine Clr Calc Pharmacy 36.4 ml/min; Magnesium 1.8 mg/dl (1.7-2.4); Phosphorus 3.5 mg/dl (2.5-4.9); Potassium 4.2 mmol/L (3.5-5.1)
[2024-03-06 07:28] VITALS: PULSE 61; RESP 17; TEMP 97.9; O2SAT 90
[2024-03-06] MEDS: MECLIZINE HCL 25 MG TAB PO PRN (08:33)
[2024-03-06] MEDS: LEVOTHYROXINE SODIUM 75 MCG TABLET PO SCH (08:34)
[2024-03-06] MEDS: ACETAMINOPHEN 325 MG TAB PO PRN (08:36)
--- NOTE | 2024-03-06 10:10 | Discharge Summary ---
Date of Service March 06, 2024 Admission HPI Per Admitting Provider The patient is an 88-year-old female with a past medical history including cystocele with prolapse to undergo surgery in April, hypertension, anxiety, GERD, hyperlipidemia, hypothyroidism, and PMR. She reports approximately 5 weeks of intermittent dizziness, but in particular notes that upon arising from bed earlier this morning, she had severe dizziness and lightheadedness, where she had to hold onto the wall and other objects while walking. She reports going down the steps 1 seat at a time on her bottom. Ultimately making it to the door to unlock, to allow services to visit her. She denies any focal weakness in arms or legs. She denies any recent sick exposures or travels. Admission Exam (Per Admitting) Constitutional The patient is awake, alert and oriented 3, well developed and well nourished, normocephalic and atraumatic, lying in bed and in no acute distress. HEENT--PERRL, EOMI, mucous membranes and oropharynx mildly dry Neck--supple. No JVD. No bruits. Thyroid normal, trachea midline, no adenopathy. Heart--normal S1 and S2. No murmurs, rubs or gallops. Lungs--clear bilaterally, no respiratory distress, no accessory muscle use. Abdomen--normal bowel sounds and soft. Extremities--no cyanosis or clubbing. No edema. Dermatologic--normal skin turgor, normal color, no abnormal lymph nodes, no rash. Neurologic--cranial nerves II through XII grossly intact. Rheumatologic--normal range of motion. Psychiatric--normal affect. Discharge Data Consultations 03/04/24 19:48 ED Decision to Admit Stat 03/04/24 22:03 Consult Neurology Routine Hospital Course (1) BPPV (benign paroxysmal positional vertigo): (2) Stroke-like symptoms: (3) Lightheadedness: (4) Dizziness: (5) Ambulatory dysfunction: (6) Cystocele with prolapse: (7) PMR (polymyalgia rheumatica): (8) Hypertension: Plan Patient presents with Lightheadedness, dizziness, ambulatory dysfunction Most likely due to BPPV, [place] hallpike positive as elicited by RN CT scan head negative MRI brain consistent with small vessel disease MRA head and neck did not show any vessel occlusion Patient feels a lot better today She was told that the therapist who can do the Paul manuver will not be at work till tomorrow Patient says she feels good enough to go home Will send on mecllizine PRN Hypertension- Continue HCTZ and losartan Hypothyroidism- Continue levothyroxine at current dosing, TSH acceptable Coding Level of Care Code 21851 INP/OBS DISCH >30 MIN Diagnoses BPPV (benign paroxysmal positional vertigo) H81.10 Stroke-like symptoms R29.90 Lightheadedness R42 Dizziness R42 Ambulatory dysfunction R26.2 Cystocele with prolapse N81.4 PMR (polymyalgia rheumatica) M35.3 Primary hypertension I10 Hypertension type: primary hypertension Time Spent (min) 35
--- NOTE | 2024-03-06 10:17 | Neurology Progress Note ---
Date of Service March 06, 2024 Assessment & Plan (1) BPPV (benign paroxysmal positional vertigo): Plan Probable benign positional paroxysmal vertigo, horizontal canal. No evidence of vertebrobasilar insufficiency. Patient could also have an element of cervicogenic vertigo. May continue with meclizine as needed. Outpatient physical therapy for vertigo. Patient should not require additional outpatient neurology follow-up. The majority of today's follow-up was spent discussing patient's signs, symptoms, diagnosis, test results, treatment, prognosis, with the patient and her granddaughter who was present. Admission and Anticipated Discharge Date Admission Date: March 04, 2024 Subjective Follow-up regarding vertigo The patient reports modest improvement in her symptoms compared with yesterday. She has been ambulating independently. She does experience mild brief vertigo with bending forward and looking down that resolves when sitting upright. He denied experiencing any vertigo when lying flat in bed overnight. MRA of the head and neck completed yesterday are normal. No evidence of vertebrobasilar stenosis. Results & Data Vital Signs (Past 12 Hours) Vital Signs Temp Pulse Resp BP Pulse Ox O2 Del Method 03/06/24 07:27 36.6 C 61 17 121/73 90 Room Air 03/06/24 03:16 36.8 C 57 L 20 95/57 L 93 Room Air 03/05/24 23:08 36.6 C 56 L 16 108/67 92 Room Air Exam (Neuro) Neurologic: Oriented to:: Person, Place and Time Attention: Span Intact Speech Fluency: negative Dysarthria or Dysfluency Speech Aphasia: negative Aphasia Fund of Knowledge: Current Events, Past History and Vocabulary Cranial Nerves: Normal II, III, IV, , V, VII, VIII, IX, X, XI and XII Motor Strength: Normal Lower Extremities and Normal Upper Extremities Muscle Bulk/Involuntary Movements: No Involuntary Movements Coordination: Normal Details: Mild vertigo induced with having patient leaned forward and look down to the floor, resolves quickly with sitting upright. No associated nystagmus. Limited rotational movement of the head and neck noted, no nuchal rigidity. Coding Level of Care Code 31953 SUB INP/OBS CARE 2/35MIN Diagnoses BPPV (benign paroxysmal positional vertigo) H81.10 Time Spent (min) 40 Comment Total time includes patient contact, chart review, counseling, note preparation
[2024-03-06 11:13] VITALS: BP 98/65
== END 2024-03-06 13:20 | disposition home or self-care (01) ==
LOC: ED 11:35 → 2S 11:35 → SUATTDRO 20:45 → 2S 21:40